=== PATIENT | female | born 1990 | race Caucasian/White ===

== ENCOUNTER 2017-08-25 16:39 | Emergency (ER) | payer MEDICARE, MEDICAID ==
[2017-08-25 17:21] VITALS: BP 114/78
--- NOTE | 2017-08-25 17:43 | UC ---
Throat Pain/Nasal Shahid HPI - HPI Summary HPI Summary: sinus pain and pressure x 2 weeks + nasal congestion , pnd, cough, bilateral ear pain no fever, no chills - History of Current Complaint Chief Complaint: UCGeneralIllness Stated Complaint: COLD SYMPTOMS,EAR ACHE Time Seen by Provider: 08/25/17 17:38 Hx Obtained From: Patient Hx Last Menstrual Period: 09/30/15 Onset/Duration: Gradual Onset, Lasting Weeks - 2, Still Present Severity: Moderate Cough: Nonproductive Associated Signs & Symptoms: Positive: Sinus Discomfort, Nasal Discharge. Negative: Dysphagia, FB Sensation, Drooling, Wheezing, Hoarseness, Fever, Vomiting, Rash - Allergies/Home Medications Allergies/Adverse Reactions: Allergies Allergy/AdvReac Type Severity Reaction Status Date / Time No Known Allergies Allergy Verified 08/25/17 17:21 Home Medications: Home Medications Amitriptyline TAB* [Elavil TAB*] 20 mg PO BEDTIME 08/25/17 [History Confirmed ] Botox Injections SEE INSTRUCTIONS 08/25/17 [History] Cyclobenzaprine HCl [Flexeril 5 mg (NF)] 5 mg PO TID PRN 08/25/17 [History Confirmed 08/25/17] Magnesium Oxide TAB* [MagOx 400 TAB*] 400 mg PO DAILY 08/25/17 [History Confirmed 08/25/17] Naproxen [Naproxen 500 mg] 500 mg PO BID PRN 08/25/17 [History Confirmed ] SUMAtriptan TAB* [Imitrex TAB*] 50 mg PO SEE INSTRUCTIONS PRN 08/25/17 [History Confirmed 08/25/17] Sertraline* [Zoloft*] 50 mg PO DAILY 08/25/17 [History Confirmed 08/25/17] Topiramate [Topamax 100 mg tab] 100 mg BID 08/25/17 [History Confirmed 08/25/17] PMH/Surg Hx/FS Hx/Imm Hx Previously Healthy: Yes - Surgical History Surgical History: Yes Surgery Procedure, Year, and Place: 2010 & 2011 Sinus surgeries, [facility] (Dr. Torres). TUBES TIED--08/25/15. hysterectomy 11/2016 - Family History Known Family History: Negative: Diabetes - Social History Alcohol Use: Rare Substance Use Type: None Smoking Status (MU): Light Every Day Tobacco Smoker Type: Cigarettes Amount Used/How Often: LESS THAN 1/2 PPD Length of Time of Smoking/Using Tobacco: 8 YRS Have You Smoked in the Last Year: Yes When Did the Patient Quit Smoking/Using Tobacco: 08/2014 Household Exposure Type: Cigarettes - Immunization History Most Recent Influenza Vaccination: none Most Recent Tetanus Shot: 03/16/15 Most Recent Pneumonia Vaccination: none Review of Systems Constitutional: Negative Skin: Negative Eyes: Negative ENT: Ear Ache, Nasal Discharge, Sinus Congestion, Sinus Pain/Tenderness Respiratory: Cough Cardiovascular: Negative Gastrointestinal: Negative Is Patient Immunocompromised?: No All Other Systems Reviewed And Are Negative: Yes Physical Exam Triage Information Reviewed: Yes Appearance: Well-Appearing, No Pain Distress, Well-Nourished Vital Signs: Initial Vital Signs Temp 99 F 08/25/17 17:16 Pulse 108 08/25/17 17:16 Resp 17 08/25/17 17:16 BP 114/78 08/25/17 17:16 Pulse Ox 100 08/25/17 17:16 Vital Signs Reviewed: Yes Eye Exam: Normal Eyes: Positive: Conjunctiva Clear ENT: Positive: Normal ENT inspection, Hearing grossly normal, Pharynx normal, Nasal congestion, Nasal drainage, TMs normal Neck: Positive: Supple, Nontender, No Lymphadenopathy Respiratory: Positive: Chest non-tender, Lungs clear, Normal breath sounds Cardiovascular: Positive: RRR, No Murmur, Pulses Normal Throat Pain/Nasal Course/Dx - Differential Dx/Diagnosis Provider Diagnoses: sinusitis Discharge - Discharge Plan Condition: Stable Disposition: HOME Prescriptions: Amoxicillin/Clavulanate TAB* [Augmentin TAB 875*] 875 mg PO BID #20 tab Patient Education Materials: Sinusitis (ED) Referrals: DEVAUGHN Rivers [Primary Care Provider] - If Needed
== END 2017-08-25 17:47 | disposition home or self-care (01) ==
LOC: UCCORT 16:39
DX: J32.9 Chronic sinusitis, unspecified (principal); F17.210 Nicotine dependence, cigarettes, uncomplicated
CPT/HCPCS: 99212; G0463

== ENCOUNTER 2017-10-26 10:30 | Emergency (ER) | payer MEDICARE, MEDICAID ==
[2017-10-26 13:37] VITALS: BP 123/76
--- NOTE | 2017-10-26 15:14 | UC ---
Throat Pain/Nasal Shahid HPI - HPI Summary HPI Summary: SINUS INFECTION 6 WEEKS AGO, 3 WEEKS OF RIGHT EAR PAIN - History of Current Complaint Chief Complaint: UCRespiratory Stated Complaint: SINUSES,RT EAR Time Seen by Provider: 10/26/17 13:05 Hx Obtained From: Patient, Family/Motel Manager Hx Last Menstrual Period: n/a Onset/Duration: Gradual Onset, Lasting Weeks, Still Present Severity: Moderate Pain Intensity: 9 Pain Scale Used: 0-10 Numeric Cough: Nonproductive Associated Signs & Symptoms: Positive: Hoarseness, Sinus Discomfort, Nasal Discharge - Epiglottits Risk Factors Epiglottis Risk Factors: Negative - Allergies/Home Medications Allergies/Adverse Reactions: Allergies Allergy/AdvReac Type Severity Reaction Status Date / Time seasonal Allergy Eyes Uncoded 10/26/17 13:37 Itchy/Swollen/Red/Watery PMH/Surg Hx/FS Hx/Imm Hx Previously Healthy: Yes - Surgical History Surgical History: Yes Surgery Procedure, Year, and Place: 2010 & 2011 Sinus surgeries, [facility] (Dr. Torres). TUBES TIED--08/25/15. hysterectomy 11/2016 - Family History Known Family History: Negative: Diabetes - Social History Occupation: Employed Full-time Lives: With Family Alcohol Use: Rare Substance Use Type: None Smoking Status (MU): Light Every Day Tobacco Smoker Type: Cigarettes Amount Used/How Often: LESS THAN 1/2 PPD Length of Time of Smoking/Using Tobacco: 8 YRS Have You Smoked in the Last Year: Yes When Did the Patient Quit Smoking/Using Tobacco: 08/2014 Household Exposure Type: Cigarettes - Immunization History Most Recent Influenza Vaccination: none Most Recent Tetanus Shot: 03/16/15 Most Recent Pneumonia Vaccination: none Review of Systems Constitutional: Negative Skin: Negative Eyes: Negative ENT: Ear Ache, Nasal Discharge, Sinus Congestion, Sinus Pain/Tenderness Respiratory: Cough Cardiovascular: Negative Gastrointestinal: Negative Genitourinary: Negative Motor: Negative Neurovascular: Negative Musculoskeletal: Negative Neurological: Negative Psychological: Negative Is Patient Immunocompromised?: No All Other Systems Reviewed And Are Negative: Yes Physical Exam Triage Information Reviewed: Yes Appearance: No Pain Distress, Well-Nourished, Ill-Appearing Vital Signs: Initial Vital Signs Temp 97.9 F 10/26/17 13:26 Pulse 104 10/26/17 13:26 Resp 22 10/26/17 13:26 BP 123/76 10/26/17 13:26 Pulse Ox 98 10/26/17 13:26 Vital Signs Reviewed: Yes Eye Exam: Normal ENT: Positive: TM bulging, TM dull, TM red - RIGHT, Other - RIGHT EAC EDEMA ERYTHEMA Dental Exam: Normal Neck exam: Normal Neck: Positive: Supple, Nontender, No Lymphadenopathy Respiratory Exam: Normal Respiratory: Positive: Chest non-tender, Lungs clear, Normal breath sounds, No respiratory distress, No accessory muscle use Cardiovascular Exam: Normal Cardiovascular: Positive: RRR, No Murmur, Pulses Normal, Brisk Capillary Refill Abdominal Exam: Normal Abdomen Description: Positive: Nontender, No Organomegaly Musculoskeletal Exam: Normal Neurological Exam: Normal Psychological Exam: Normal Skin Exam: Normal Throat Pain/Nasal Course/Dx - Differential Dx/Diagnosis Differential Diagnosis/HQI/PQRI: Pharyngitis, Sinusitis, Tonsillitis, URI Provider Diagnoses: SINUSITIS; RIGHT OTITIS EXTERNA Discharge - Discharge Plan Condition: Stable Disposition: HOME Prescriptions: Amoxicillin/Clavulanate TAB* [Augmentin TAB 875*] 875 mg PO BID #20 tab Neomyc/Polym/HC 1% OTIC SUSP* [Cortisporin Otic Susp 1%*] 4 drop RIGHT EAR QID # 1 btl Patient Education Materials: Sinusitis (ED), Otitis Externa (ED) Referrals: DEVAUGHN Rivers [Primary Care Provider] -
== END 2017-10-26 13:46 | disposition home or self-care (01) ==
LOC: UCCORT 10:30
DX: J32.9 Chronic sinusitis, unspecified (principal); H60.91 Unspecified otitis externa, right ear; Z87.891 Personal history of nicotine dependence
CPT/HCPCS: 99212; G0463

== ENCOUNTER 2017-12-10 16:44 | Emergency (ER) | payer MEDICARE, MEDICAID ==
[2017-12-10 19:38] VITALS: BP 107/73
--- NOTE | 2017-12-10 19:52 | UC ---
Respiratory Complaint HPI - HPI Summary HPI Summary: 27 y/o female presents to the urgent care c/o nasal congestion, productive cough , fever, chills, body ache. symptoms started with sore throat on 12/06/2017, but it resolved and then body aches started on 12/08/2017. Nasal discharged is green with +PND. Pain is dull 5/10. She has taking Dayquill and Nyquill to alleviate symptoms. Pt deneis SOB, chest pain, abdominal pain, N/V/D. - History of Current Complaint Chief Complaint: UCGeneralIllness Stated Complaint: COUGH/CONGESTION Time Seen by Provider: 12/10/17 19:51 Hx Obtained From: Patient Hx Last Menstrual Period: n/a ?: No Onset/Duration: Gradual Onset, Lasting Days - 4 days, Still Present, Worse Since - 2 days Timing: Intermittent Episodes Severity Initially: Mild Severity Currently: Moderate Pain Intensity: 5 Pain Scale Used: 0-10 Numeric Character: Cough: Productive, Sputum Description: - green Aggravating Factors: Recumbent Position Alleviating Factors: OTC Meds Associated Signs And Symptoms: Positive: Fever, Chills, URI, Nasal Congestion, Sinus Discomfort - Risk Factors Pulmonary Embolism Risk Factors: Negative Cardiac Risk Factors: Negative Pseudomonas Risk Factors: Negative - Allergies/Home Medications Allergies/Adverse Reactions: Allergies Allergy/AdvReac Type Severity Reaction Status Date / Time seasonal Allergy Eyes Uncoded 12/10/17 19:38 Itchy/Swollen/Red/Watery PMH/Surg Hx/FS Hx/Imm Hx Previously Healthy: Yes GI/ History: Gastroesophageal Reflux Neurological History: Migraine - Surgical History Surgical History: Yes Surgery Procedure, Year, and Place: 2010 & 2011 Sinus surgeries, [facility] (Dr. Torres). TUBES TIED--08/25/15. hysterectomy 11/2016 - Family History Known Family History: Positive: Cardiac Disease, Hypertension, Diabetes - Social History Occupation: Employed Full-time Lives: With Family Alcohol Use: None Substance Use Type: None Smoking Status (MU): Light Every Day Tobacco Smoker Type: Cigarettes Amount Used/How Often: LESS THAN 1/2 PPD Length of Time of Smoking/Using Tobacco: 8 YRS Have You Smoked in the Last Year: Yes When Did the Patient Quit Smoking/Using Tobacco: 08/2014 Household Exposure Type: Cigarettes - Immunization History Most Recent Influenza Vaccination: 7818-8441 Most Recent Tetanus Shot: 03/16/15 Most Recent Pneumonia Vaccination: none Review of Systems Constitutional: Fever, Chills, Other - body aches Skin: Negative Eyes: Negative ENT: Sore Throat, Ear Ache - B/L ear pressure, Nasal Discharge, Sinus Congestion Respiratory: Cough - productive Cardiovascular: Negative Gastrointestinal: Negative Genitourinary: Negative Motor: Negative Neurovascular: Negative Musculoskeletal: Negative Neurological: Negative Psychological: Negative Is Patient Immunocompromised?: No All Other Systems Reviewed And Are Negative: Yes Physical Exam Triage Information Reviewed: Yes Vital Signs: Initial Vital Signs Temp 100.5 F 12/10/17 19:34 Pulse 116 12/10/17 19:34 Resp 17 12/10/17 19:34 BP 107/73 12/10/17 19:34 Pulse Ox 100 12/10/17 19:34 - Additional Comments VITAL SIGNS: Reviewed. GENERAL: Patient is a well developed and nourished female who is sitting comfortable in the examining table. Patient is not in any acute respiratory distress. HEAD AND FACE: No signs of trauma. No ecchymosis, hematomas or skull depressions. No sinus tenderness. NOSE: edematous erythematous nasal mucosa with yellowish discharge, EYES: PERRLA, EOMI x 2, No injected conjunctiva, clear watery eyes, no nystagmus. No photophobia. EARS: Hearing grossly intact. Ear canals and tympanic membranes are within normal limits. MOUTH: Positive pharynx with erythema, no exudates,no palatal petechiae. no B/ L tonsillar enlargement Uvula in midline. NECK: Supple, trachea is midline, Positive anterior cervical lymphadenopathy, no JVD, no carotid bruit, no c-spine tenderness, neck with full ROM. No meningeal signs, no Kernig's or brudzinskis signs. CHEST: Symmetric, no tenderness at palpation LUNGS: Clear to auscultation bilaterally. No wheezing or crackles. CVS: Regular rate and rhythm, S1 and S2 present, no murmurs or gallops appreciated. ABDOMEN: Soft, non-tender. No signs of distention. No rebound no guarding, and no masses palpated. Bowel sounds are normal. EXTREMITIES: FROM in all major joints, no edema, no cyanosis or clubbing. NEURO: Alert and oriented x 3. No acute neurological deficits. Speech is normal and follows commands. SKIN: Dry and warm UC Diagnostic Evaluation - Laboratory O2 Sat by Pulse Oximetry: 100 Respiratory Course/Dx - Course Course Of Treatment: 27 y/o female presents to the urgent care c/o nasal congestion, productive cough, fever, chills, body ache. symptoms started with sore throat on 12/06/2017, but it resolved and then body aches started on 2017. Nasal discharged is green with +PND. Pain is dull 5/10. She has taking Dayquill and Nyquill to alleviate symptoms. Pt deneis SOB, chest pain, abdominal pain, N/V/D.Hx obtained. Pt w/ 100.5F, Pt given Ibuprofen PO at the clinic. Pt tolerated well medication. with 1 week of symptoms getting worse, now with fever. Influenxa A&B ordered: result: negative. Pt will be Tx for acute sinusitis. Pt Rx Augmentin PO and Ibuprofen to control temp. Discharge instructions explained to Pt. Advised to Return to the clinic or PCP if symptoms do not improve.Pt understood and agreed with plan of care. - Differential Dx/Diagnosis Differential Diagnosis/HQI/PQRI: Asthma, Bronchitis, Influenza, Laryngitis, Lower Resp Infection, Sinusitis, Other - pharyngitis, Provider Diagnoses: 1- acute bacterial sinusitis. 2- fever Discharge - Discharge Plan Condition: Stable Disposition: HOME Prescriptions: Amoxicillin/Clavulanate TAB* [Augmentin TAB 875*] 875 mg PO BID #20 tab Ibuprofen TAB* [Motrin TAB* 800 MG] 800 mg PO Q6H #20 tab Patient Education Materials: Sinusitis (ED), Fever in Adults (ED) Referrals: DEVAUGHN Rivers [Primary Care Provider] - 2 Days Additional Instructions: 1- Please increase fluid intake and rest. take full course of antibiotic to avoid resistance 2-Use Flonase ypou have at home as directed to help drain fluid. Also buy saline drops to clear sinuses 3-Take Ibuprofen PO q6-8hrs to alleviate fever after meals. Increase fluid intake, rest, eat well. 4- If you develop SOB, severe fever despite medication please go immediately to the ER for further treatment 4-Return to the clinic or PCP if symptoms do not improve for further management and treatment
[2017-12-10] MEDS ORDERED: Ibuprofen TAB* 400 MG PO ONE (20:05)
== END 2017-12-10 20:41 | disposition home or self-care (01) ==
LOC: UCCORT 16:44
DX: J01.90 Acute sinusitis, unspecified (principal); R50.9 Fever, unspecified; K21.9 Gastro-esophageal reflux disease without esophagitis; G43.909 Migraine, unspecified, not intractable, without status migrainosus; Z90.710 Acquired absence of both cervix and uterus; Z87.891 Personal history of nicotine dependence
CPT/HCPCS: 87502; 99212; A9270-GY; G0463

== ENCOUNTER 2018-03-23 10:11 | Emergency (ER) | payer MEDICARE, MEDICAID ==
[2018-03-23 12:02] VITALS: BP 103/76
--- NOTE | 2018-03-23 12:19 | UC ---
Respiratory Complaint HPI - HPI Summary HPI Summary: Patient to urgent care today with worsening symptoms of sinus pain and pressure cough nasal drainage and sore throat. Patient has had fevers. Patient has a history of chronic sinusitis - History of Current Complaint Chief Complaint: UCGeneralIllness Stated Complaint: CONGESTION, COUGH, SORE THROAT Time Seen by Provider: 03/23/18 12:11 Hx Obtained From: Patient Hx Last Menstrual Period: n/a ?: No Onset/Duration: Sudden Onset, Lasting Days Timing: Constant Severity Initially: Moderate Severity Currently: Moderate Pain Intensity: 7 Pain Scale Used: 0-10 Numeric Character: Cough: Nonproductive Aggravating Factors: Nothing Alleviating Factors: Nothing Associated Signs And Symptoms: Positive: Fever, Chills, Nasal Congestion, Hoarseness, Sinus Discomfort - Allergies/Home Medications Allergies/Adverse Reactions: Allergies Allergy/AdvReac Type Severity Reaction Status Date / Time seasonal Allergy Eyes Uncoded 12/10/17 19:38 Itchy/Swollen/Red/Watery Home Medications: Home Medications Dm/PE/Acetaminophen/Chlorphenr [Zoe-[place] Plus Cld-Cough Cp] 1 each PO Q6H [History Confirmed 03/23/18] Rizatriptan Benzoate [Rizatriptan] 5 mg PO Q12H 03/23/18 [History Confirmed ] PMH/Surg Hx/FS Hx/Imm Hx Previously Healthy: No - chronic sinusitis Neurological History: Migraine - Surgical History Surgical History: Yes Surgery Procedure, Year, and Place: 2010 & 2011 Sinus surgeries, [facility] (Dr. Torres). TUBES TIED--08/25/15. hysterectomy 11/2016 - Family History Known Family History: Positive: Cardiac Disease, Hypertension, Diabetes - Social History Occupation: Works From/At Home Lives: With Family Alcohol Use: None Substance Use Type: None Smoking Status (MU): Former Smoker Type: Cigarettes Amount Used/How Often: LESS THAN 1/2 PPD Length of Time of Smoking/Using Tobacco: 8 YRS Have You Smoked in the Last Year: Yes When Did the Patient Quit Smoking/Using Tobacco: 2018 Household Exposure Type: Cigarettes - Immunization History Most Recent Influenza Vaccination: [id number] Most Recent Tetanus Shot: 03/16/15 Most Recent Pneumonia Vaccination: none Review of Systems Constitutional: Negative Skin: Negative Eyes: Negative ENT: Sore Throat, Ear Ache, Nasal Discharge, Sinus Congestion, Sinus Pain/ Tenderness Respiratory: Cough Cardiovascular: Negative Gastrointestinal: Negative Genitourinary: Negative Motor: Negative Neurovascular: Negative Musculoskeletal: Negative Neurological: Headache Psychological: Negative Is Patient Immunocompromised?: No All Other Systems Reviewed And Are Negative: Yes Physical Exam Triage Information Reviewed: Yes Appearance: Well-Nourished, Ill-Appearing, Pain Distress Vital Signs: Initial Vital Signs Temp 98.1 F 03/23/18 11:52 Pulse 107 03/23/18 11:52 Resp 20 03/23/18 11:52 BP 103/76 03/23/18 11:52 Pulse Ox 98 03/23/18 11:52 Vital Signs Reviewed: Yes Eye Exam: Normal Eyes: Positive: Conjunctiva Clear ENT Exam: Normal ENT: Positive: Normal ENT inspection, Hearing grossly normal, Pharyngeal erythema, Nasal congestion, Nasal drainage, TMs normal, Hoarse voice, Sinus tenderness, Uvula midline. Negative: Tonsillar swelling, Tonsillar exudate, Trismus, Muffled voice Dental Exam: Normal Neck exam: Normal Neck: Positive: Supple, Nontender, No Lymphadenopathy Respiratory Exam: Normal Respiratory: Positive: Chest non-tender, Lungs clear, Normal breath sounds, No respiratory distress, No accessory muscle use Cardiovascular Exam: Normal Cardiovascular: Positive: RRR, No Murmur, Pulses Normal, Brisk Capillary Refill Musculoskeletal Exam: Normal Musculoskeletal: Positive: Strength Intact, ROM Intact, No Edema Neurological Exam: Normal Neurological: Positive: Alert, Muscle Tone Normal Psychological Exam: Normal Psychological: Positive: Normal Response To Family Skin Exam: Normal UC Diagnostic Evaluation - Laboratory O2 Sat by Pulse Oximetry: 98 Diagnostic Studies Comment: Influenza A/B- Respiratory Course/Dx - Course Course Of Treatment: Continue steroid nasal spray, Mucinex D, Augmentin increase fluids follow with PCP. May use Tylenol or ibuprofen for pain - Differential Dx/Diagnosis Provider Diagnoses: Acute exacerbation of chronic sinusitis Discharge - Sign-Out/Discharge Documenting (check all that apply): Discharge/Admit/Transfer - Discharge Plan Condition: Stable Disposition: HOME Prescriptions: Amoxicillin/Clavulanate TAB* [Augmentin TAB 875*] 875 mg PO BID #20 tab Patient Education Materials: Sinusitis (ED), Nasal Rinse (ED), How to Use Nasal [place] (ED) Referrals: DEVAUGHN Rivers [Primary Care Provider] - If Needed - Billing Disposition and Condition Condition: STABLE Disposition: HOME
== END 2018-03-23 13:04 | disposition home or self-care (01) ==
LOC: UCCORT 10:11
DX: J01.90 Acute sinusitis, unspecified (principal); J32.9 Chronic sinusitis, unspecified; Z87.891 Personal history of nicotine dependence
CPT/HCPCS: 87502; 99212; G0463

== ENCOUNTER 2018-06-18 12:38 | Emergency (ER) | payer MEDICARE, MEDICAID ==
[2018-06-18 13:24] VITALS: BP 107/67
[2018-06-18] MEDS ORDERED: Ondansetron ODT TAB* 4 MG PO ONE (13:29)
[2018-06-18] MEDS ORDERED: Ketorolac INJ* 60 MG/2 ML VIAL IM ONE (13:29)
--- NOTE | 2018-06-18 13:34 | UC ---
Throat Pain/Nasal Shahid HPI - HPI Summary HPI Summary: SORE THROAT X 2 DAYS + NASAL CONGESTION , PND, SINUS PAIN AND PRESSURE + FEVER, CHILLS SEVER HEADACHES FOR THE PAST 2 DAYS - History of Current Complaint Chief Complaint: UCGeneralIllness Stated Complaint: SINUSES,DELACRUZ Time Seen by Provider: 06/18/18 13:22 Hx Obtained From: Patient Hx Last Menstrual Period: n/a ?: No Onset/Duration: Gradual Onset, Lasting Days - 2, Still Present Severity: Severe Pain Intensity: 8 Cough: None Associated Signs & Symptoms: Positive: Sinus Discomfort, Nasal Discharge, Fever. Negative: Dysphagia, FB Sensation, Drooling, Wheezing, Hoarseness, Vomiting, Rash - Allergies/Home Medications Allergies/Adverse Reactions: Allergies Allergy/AdvReac Type Severity Reaction Status Date / Time seasonal Allergy Eyes Uncoded 06/18/18 13:24 Itchy/Swollen/Red/Watery PMH/Surg Hx/FS Hx/Imm Hx Neurological History: Migraine - Surgical History Surgical History: Yes Surgery Procedure, Year, and Place: 2010 & 2011 Sinus surgeries, [facility] (Dr. Torres). TUBES TIED--08/25/15. hysterectomy 11/2016 - Family History Known Family History: Positive: Cardiac Disease, Hypertension, Diabetes - Social History Alcohol Use: None Substance Use Type: None Smoking Status (MU): Never Smoked Tobacco Type: Cigarettes Amount Used/How Often: LESS THAN 1/2 PPD Length of Time of Smoking/Using Tobacco: 8 YRS Have You Smoked in the Last Year: Yes When Did the Patient Quit Smoking/Using Tobacco: 2018 Household Exposure Type: Cigarettes - Immunization History Most Recent Influenza Vaccination: 4087-1043 Most Recent Tetanus Shot: 03/16/15 Most Recent Pneumonia Vaccination: none Review of Systems Constitutional: Fever, Chills, Fatigue Skin: Negative Eyes: Negative ENT: Sore Throat, Ear Ache, Nasal Discharge, Sinus Congestion, Sinus Pain/ Tenderness Respiratory: Negative Cardiovascular: Negative Neurological: Headache Is Patient Immunocompromised?: No All Other Systems Reviewed And Are Negative: Yes Physical Exam Triage Information Reviewed: Yes Appearance: Well-Nourished, Pain Distress Vital Signs: Initial Vital Signs Temp 97.6 F 06/18/18 13:18 Pulse 100 06/18/18 13:18 Resp 18 06/18/18 13:18 BP 107/67 06/18/18 13:18 Pulse Ox 99 06/18/18 13:18 Vital Signs Reviewed: Yes Eyes: Positive: Conjunctiva Clear ENT: Positive: Normal ENT inspection, Hearing grossly normal, Pharynx normal Neck: Positive: Supple, Nontender, No Lymphadenopathy Respiratory: Positive: Chest non-tender, Lungs clear, Normal breath sounds Cardiovascular: Positive: No Murmur, Tachycardia Abdominal Exam: Normal Musculoskeletal Exam: Normal Musculoskeletal: Positive: No Edema Neurological: Positive: Alert UC Physical Exam Vital Signs On Initial Exam: Initial Vitals Temp Pulse Resp BP Pulse Ox 97.6 F 100 18 107/67 99 06/18/18 13:18 06/18/18 13:18 06/18/18 13:18 06/18/18 13:18 06/18/18 13:18 - Neurological Exam Neurological: Normal, Sensory/Motor Intact, Alert, Oriented to Person Place, Time, Reflexes Intact, Normal Gait, Speech Normal Throat Pain/Nasal Course/Dx - Differential Dx/Diagnosis Provider Diagnoses: URI. HEADACHES Discharge - Sign-Out/Discharge Documenting (check all that apply): Patient Departure - Discharge Plan Condition: Stable Disposition: HOME Patient Education Materials: Upper Respiratory Infection (ED), Acute Headache ( DC) Referrals: Kaye Pool MD [Primary Care Provider] - - Billing Disposition and Condition Condition: STABLE Disposition: Home
== END 2018-06-18 14:14 | disposition home or self-care (01) ==
LOC: UCCORT 12:38
DX: J06.9 Acute upper respiratory infection, unspecified (principal); R51 Headache; Z87.891 Personal history of nicotine dependence
CPT/HCPCS: 96372; 99212; A9270-GY; G0463; J1885

== ENCOUNTER 2018-08-19 16:23 | Emergency (ER) | payer MEDICARE, MEDICAID ==
[2018-08-19 20:06] VITALS: BP 111/65
--- NOTE | 2018-08-19 20:07 | UC ---
UC General HPI - HPI Summary HPI Summary: Patient is complaining of a 5 day history of pain and itching to both ears. She denies any associated discharge but reports that she had swimmer's ear once and it got very severe. She is also complaining of headache, sore throat, body aches and of her neck being sore. - History of Current Complaint Stated Complaint: ST,PAIN IN BOTH EARS,SINUS/DELACRUZ Time Seen by Provider: 08/19/18 19:59 Hx Obtained From: Patient Hx Last Menstrual Period: n/a Onset/Duration: Gradual Onset Timing: Constant Aggravating: Nothing Alleviating: Patient took an anti-inflammatory 4 hours ago which gives some relief - Allergy/Home Medications Allergies/Adverse Reactions: Allergies Allergy/AdvReac Type Severity Reaction Status Date / Time seasonal Allergy Eyes Uncoded 08/19/18 19:56 Itchy/Swollen/Red/Watery Home Medications: Home Medications Fluoxetine HCl [Prozac] 20 mg PO DAILY 08/19/18 [History Confirmed 08/19/18] Ibuprofen TAB* [Advil TAB*] 800 mg PO Q6H PRN 08/19/18 [History Confirmed ] PMH/Surg Hx/FS Hx/Imm Hx Neurological History: Migraine Psychological History: Depression - Surgical History Surgical History: Yes Surgery Procedure, Year, and Place: 2010 & 2011 Sinus surgeries, [facility] (Dr. Torres). TUBES TIED--08/25/15. 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 Lives: With Family Alcohol Use: None Substance Use Type: None Smoking Status (MU): Never Smoked Tobacco Type: Cigarettes Amount Used/How Often: LESS THAN 1/2 PPD Length of Time of Smoking/Using Tobacco: 8 YRS Have You Smoked in the Last Year: Yes When Did the Patient Quit Smoking/Using Tobacco: 2018 Household Exposure Type: Cigarettes - Immunization History Most Recent Influenza Vaccination: 9869-1158 Most Recent Tetanus Shot: 03/16/15 Most Recent Pneumonia Vaccination: none Vaccination Up to Date: Yes Review of Systems ENT: Sore Throat, Ear Ache Musculoskeletal: Myalgia Neurological: Headache Is Patient Immunocompromised?: No All Other Systems Reviewed And Are Negative: Yes Physical Exam Triage Information Reviewed: Yes Appearance: Well-Appearing Eyes: Positive: Conjunctiva Clear ENT: Positive: Pharyngeal erythema, TMs normal, Uvula midline, Other - Left canal has some slight erythema but no exudate. Right canal appears clear. Patient complain and complains of pain pressure on each tragus and with tug of each auricle. Negative: Nasal congestion, Nasal drainage, Tonsillar swelling, Tonsillar exudate, Trismus, Muffled voice, Hoarse voice Neck: Positive: Supple, Nontender, No Lymphadenopathy. Negative: Nuchal Rigidity Respiratory: Positive: Lungs clear, Normal breath sounds Cardiovascular: Positive: RRR, No Murmur Abdomen Description: Positive: Nontender, No Organomegaly, Soft Bowel Sounds: Positive: Present Musculoskeletal: Positive: ROM Intact Neurological: Positive: Alert Psychological: Positive: Age Appropriate Behavior Skin Exam: Normal Diagnostics - Laboratory Diagnostic Studies Completed/Ordered: rapid strep=NEG Course/Dx - Course Course Of Treatment: RAPID STREP=NEG. OE WILL BE TX WITH DROPS. - Differential Dx - Multi-Symptom Provider Diagnoses: Otitis externa. Pharyngitis. Discharge - Sign-Out/Discharge Documenting (check all that apply): Patient Departure All imaging exams completed and their final reports reviewed: No Studies - Discharge Plan Condition: Stable Disposition: HOME Patient Education Materials: Otitis Externa (DC), Pharyngitis (ED) Referrals: Ira Parmar MD [Primary Care Provider] - 7 Days Additional Instructions: Place 4 drops of the Cortisporin otic suspension eardrops in each ear 3 times a day for 7 days. - Billing Disposition and Condition Condition: STABLE Disposition: Home
[2018-08-19] MEDS ORDERED: Neomyc/Polym/HC 1% OTIC SUSP* **OTIC BOTH EARS ONE (20:17)
== END 2018-08-19 20:49 | disposition home or self-care (01) ==
LOC: UCCORT 16:23
DX: H60.90 Unspecified otitis externa, unspecified ear (principal); J02.9 Acute pharyngitis, unspecified; H92.03 Otalgia, bilateral; F32.9 Major depressive disorder, single episode, unspecified; Z87.891 Personal history of nicotine dependence
CPT/HCPCS: 87651; 99212; A9270-GY; G0463

== ENCOUNTER 2018-09-28 09:37 | Emergency (ER) | payer MEDICARE, MEDICAID ==
[2018-09-28 11:48] VITALS: BP 112/67
--- NOTE | 2018-09-28 11:59 | UC ---
Throat Pain/Nasal Shahid HPI - HPI Summary HPI Summary: Pt presents with c/o nasal congestion, sinus pressure and pain X 2 weeks. - History of Current Complaint Chief Complaint: UCGeneralIllness Stated Complaint: CONGESTION, SORE THROAT, LEFT EAR CONCERN Time Seen by Provider: 09/28/18 11:47 Hx Obtained From: Patient Hx Last Menstrual Period: hysterectomy ?: No Onset/Duration: Gradual Onset, Lasting Weeks, Still Present Severity: Moderate Pain Intensity: 7 Cough: None Associated Signs & Symptoms: Positive: Sinus Discomfort Related History: Prior ENT Surgery - Epiglottits Risk Factors Epiglottis Risk Factors: Negative - Allergies/Home Medications Allergies/Adverse Reactions: Allergies Allergy/AdvReac Type Severity Reaction Status Date / Time seasonal Allergy Eyes Uncoded 08/19/18 19:56 Itchy/Swollen/Red/Watery PMH/Surg Hx/FS Hx/Imm Hx Previously Healthy: Yes - Surgical History Surgical History: Yes Surgery Procedure, Year, and Place: 2010 & 2011 Sinus surgeries, [facility] (Dr. Torres). TUBES TIED--08/25/15. hysterectomy 11/2016 - Family History Known Family History: Positive: Cardiac Disease, Hypertension, Diabetes - Social History Occupation: Employed Full-time Lives: With Family Alcohol Use: None Substance Use Type: None Smoking Status (MU): Never Smoked Tobacco Type: Cigarettes Amount Used/How Often: LESS THAN 1/2 PPD Length of Time of Smoking/Using Tobacco: 8 YRS Have You Smoked in the Last Year: Yes When Did the Patient Quit Smoking/Using Tobacco: 2018 Household Exposure Type: Cigarettes - Immunization History Most Recent Influenza Vaccination: [id number] Most Recent Tetanus Shot: 03/16/15 Most Recent Pneumonia Vaccination: none Vaccination Up to Date: Yes Review of Systems Constitutional: Fatigue Skin: Negative Eyes: Negative ENT: Sinus Congestion, Sinus Pain/Tenderness Respiratory: Negative Cardiovascular: Negative Gastrointestinal: Negative Genitourinary: Negative Neurovascular: Negative Musculoskeletal: Negative Neurological: Headache Psychological: Negative Is Patient Immunocompromised?: No All Other Systems Reviewed And Are Negative: Yes Physical Exam Triage Information Reviewed: Yes Appearance: Well-Appearing Vital Signs: Initial Vital Signs Temp 97.6 F 09/28/18 11:43 Pulse 94 09/28/18 11:43 Resp 18 09/28/18 11:43 BP 112/67 09/28/18 11:43 Pulse Ox 99 09/28/18 11:43 Vital Signs Reviewed: Yes Eye Exam: Normal ENT: Positive: Nasal congestion, Sinus tenderness Dental Exam: Normal Neck exam: Normal Respiratory Exam: Normal Cardiovascular Exam: Normal Musculoskeletal Exam: Normal Neurological Exam: Normal Psychological Exam: Normal Skin Exam: Normal Throat Pain/Nasal Course/Dx - Differential Dx/Diagnosis Differential Diagnosis/HQI/PQRI: Sinusitis, URI Provider Diagnoses: sinusitis Discharge - Sign-Out/Discharge Documenting (check all that apply): Patient Departure All imaging exams completed and their final reports reviewed: No Studies - Discharge Plan Condition: Stable Disposition: HOME Prescriptions: Amoxicillin PO (*) [Amoxicillin 875 MG (*)] 875 mg PO Q12H #20 tab Patient Education Materials: Sinusitis (ED) Referrals: Graham Torres MD [Medical Doctor] - If Needed Ira Parmar MD [Primary Care Provider] - If Needed - Billing Disposition and Condition Condition: STABLE Disposition: Home
== END 2018-09-28 12:06 | disposition home or self-care (01) ==
LOC: UCCORT 09:37
DX: J01.90 Acute sinusitis, unspecified (principal)
CPT/HCPCS: 99212; G0463

== ENCOUNTER 2018-11-28 18:08 | Emergency (ER) | payer MEDICARE, MEDICAID ==
[2018-11-28 19:20] VITALS: BP 103/75
[2018-11-28] MEDS ORDERED: Acetaminophen TAB* 325 MG PO ONE (19:57)
--- NOTE | 2018-11-28 20:02 | ED ---
Throat Pain/Nasal Congestion - HPI Summary HPI Summary: 28 yr old female with a history of sinusitis. Present here with frontal and maxillary sinus pressure, post nasal drip, coughing. She complains of myalgias and some neck pain as well. She has post nasal drip. No NV. No SOB. - History of Current Complaint Chief Complaint: UCRespiratory Time Seen by Provider: 11/28/18 19:27 - Allergies/Home Medications Allergies/Adverse Reactions: Allergies Allergy/AdvReac Type Severity Reaction Status Date / Time seasonal Allergy Eyes Uncoded 11/28/18 19:12 Itchy/Swollen/Red/Watery Home Medications: Home Medications Erenumab-Aooe [Aimovig Autoinjector] 1 tab MONTHLY 11/28/18 [History Confirmed 11/28/18] Magnesium Oxide TAB* [MagOx 400 TAB*] 1 tab DAILY 11/28/18 [History Confirmed ] Omeprazole CAP* [Prilosec CAP* 20 MG] 40 mg DAILY 11/28/18 [History Confirmed ] PMH/Surg Hx/FS Hx/Imm Hx Endocrine/Hematology History: Denies: Hx Diabetes Cardiovascular History: Denies: Hx Hypertension, Hx Pacemaker/ICD Respiratory History: Denies: Hx Asthma, Hx Chronic Obstructive Pulmonary Disease (COPD) GI History: Reports: Hx Gastroesophageal Reflux Disease - HAS MEDS AVAILABLE History: Reports: Hx Kidney Stones - Hx OF,x2, PASSED ON OWN, BOTH TIMES Sensory History: Reports: Hx Contacts or Glasses - GLASSES Denies: Hx Hearing Aid Opthamlomology History: Reports: Hx Contacts or Glasses - GLASSES Neurological History: Reports: Hx Headaches, Hx Migraine - USUALLY 2x WK Psychiatric History: Reports: Hx Anxiety - HAS PRN MEDS, USES OCCASSIONALLY, Hx Depression Denies: Hx Panic Disorder - Surgical History Surgery Procedure, Year, and Place: 2010 & 2011 Sinus surgeries, [facility] (Dr. Torres). TUBES TIED--08/25/15. hysterectomy 11/2016 Hx Anesthesia Reactions: No Infectious Disease History: No Infectious Disease History: Denies: Traveled Outside the [place] in Last 30 Days - Family History Known Family History: Positive: Cardiac Disease, Hypertension, Diabetes - Social History Alcohol Use: None Substance Use Type: Reports: None Smoking Status (MU): Former Smoker Type: Cigarettes Amount Used/How Often: LESS THAN 1/2 PPD Length of Time of Smoking/Using Tobacco: 8 YRS Have You Smoked in the Last Year: Yes Review of Systems Positive: Fever, Chills Positive: Sore Throat, Nasal Discharge Positive: Cough All Other Systems Reviewed And Are Negative: Yes Physical Exam Triage Information Reviewed: Yes Vital Signs On Initial Exam: Initial Vitals Temp Pulse Resp BP Pulse Ox 98.5 F 99 16 103/75 99 11/28/18 19:15 11/28/18 19:15 11/28/18 19:15 11/28/18 19:15 11/28/18 19:15 Vital Signs Reviewed: Yes Appearance: Positive: Well-Appearing, No Pain Distress Skin: Positive: Warm, Skin Color Reflects Adequate Perfusion Head/Face: Positive: Normal Head/Face Inspection Eyes: Positive: EOMI, KRISTIE ENT: Positive: Pharyngeal erythema, Nasal congestion, Nasal drainage, TM red - bilateral with some retraction, Sinus tenderness Neck: Positive: Supple Respiratory/Lung Sounds: Positive: Clear to Auscultation, Breath Sounds Present Cardiovascular: Positive: RRR. Negative: Murmur Abdomen Description: Negative: Distended Musculoskeletal: Positive: Strength/ROM Intact Neurological: Positive: Sensory/Motor Intact, Alert, Oriented to Person Place, Time, CN Intact II-III, Normal Gait, Speech Normal Psychiatric: Positive: Normal Diagnostics - Vital Signs Vital Signs Temp Pulse Resp BP Pulse Ox 11/28/18 19:15 98.5 F 99 16 103/75 99 - Laboratory Lab Results: Lab Results 11/28/18 Range/Units 19:35 Influenza A (Rapid) Negative (Negative) Influenza B (Rapid) Negative (Negative) Lab Statement: Any lab studies that have been ordered have been reviewed, and results considered in the medical decision making process. EENT Course/Dx - Course Course Of Treatment: 28 yr old with sinusitis. Rx cefdinir. - Diagnoses Provider Diagnoses: Sinusitis Discharge - Sign-Out/Discharge Documenting (check all that apply): Patient Departure All imaging exams completed and their final reports reviewed: No Studies - Discharge Plan Condition: Good Disposition: HOME Prescriptions: Cefdinir [Cefdinir 300 MG CAP] 300 mg PO BID #20 cap Patient Education Materials: Sinusitis (ED) Forms: *Work Release Referrals: Ira Parmar MD [Primary Care Provider] - 2 Days - Billing Disposition and Condition Condition: GOOD Disposition: Home
== END 2018-11-28 20:07 | disposition home or self-care (01) ==
LOC: UCCORT 18:08
DX: Z87.891 Personal history of nicotine dependence (principal); J32.9 Chronic sinusitis, unspecified
CPT/HCPCS: 99212; A9270-GY; G0463

== ENCOUNTER 2019-03-21 17:52 | Emergency (ER) | payer MEDICARE, MEDICAID ==
[2019-03-21 18:30] VITALS: BP 114/71
--- NOTE | 2019-03-21 18:42 | UC ---
Abdominal Pain Female HPI - HPI Summary HPI Summary: Patient is 29 year old female, who present today to the urgent care with right lower abdominal pain for past 4 days . She reports that pain is localized in the right lower quadrant and also in the right upper quadrant ,radiates into the flank and into the groin. There is associated nausea for past 2 days but no episode of vomiting. She has been able to tolerate food by mouth. She had 2 loose bowel movements today morning. Does have some increased frequency but no hematuria or dysuria. No vaginal symptoms. She denies any trauma or injury to back. She denies any fevers at home. She was seen at [facility] 2 weeks ago, had more right low back pain at that time, had a CT scan done and she was told that she has a kidney stone and a possible ovarian cyst and she was discharged. She has an appointment with GRANULATING MACHINE OPERATOR, Dr. Bingham on 03/25/19. Has not seen her PMD yet. She reports that her symptoms have been progressively getting worse and got much worse over the past 2 days. She has been managing her pain with ibuprofen and naproxen - History of Current Complaint Chief Complaint: UCAbdominalPain Stated Complaint: LOWER BACK RIGHT SIDE PELVIS PAIN Time Seen by Provider: 03/21/19 18:35 Hx Obtained From: Patient Hx Last Menstrual Period: hysterectomy Pain Intensity: 8 Allergies/Adverse Reactions: Allergies Allergy/AdvReac Type Severity Reaction Status Date / Time seasonal Allergy Eyes Uncoded 11/28/18 19:12 Itchy/Swollen/Red/Watery Home Medications: Home Medications Naproxen [Naproxen 500 mg tab] 500 mg PO ONCE PRN 03/21/19 [History Confirmed ] Ondansetron ODT TAB* [Zofran 4 MG Odt TAB*] 4 mg PO Q6H PRN 03/21/19 [History Confirmed 03/21/19] PMH/Surg Hx/FS Hx/Imm Hx - Additional Past Medical History Additional PMH: Migraines Anxiety Depression bleeding Status post hysterectomy in 2017 Previously Healthy: Yes - Surgical History Surgical History: Yes Surgery Procedure, Year, and Place: 2010 & 2011 Sinus surgeries, [facility] (Dr. Torres). TUBES TIED--08/25/15. hysterectomy 11/2016 - Family History Known Family History: Positive: Cardiac Disease, Hypertension, Diabetes - Social History Alcohol Use: None Substance Use Type: None Smoking Status (MU): Current Some Day Smoker Type: Cigarettes Amount Used/How Often: LESS THAN 1/2 PPD Length of Time of Smoking/Using Tobacco: 8 YRS Have You Smoked in the Last Year: Yes When Did the Patient Quit Smoking/Using Tobacco: 2018 Household Exposure Type: Cigarettes - Immunization History Most Recent Influenza Vaccination: [id number] Most Recent Tetanus Shot: 03/16/15 Most Recent Pneumonia Vaccination: none Vaccination Up to Date: Yes Review of Systems All Other Systems Reviewed And Are Negative: Yes Constitutional: Positive: Negative Skin: Positive: Negative Eyes: Positive: Negative ENT: Positive: Negative Respiratory: Positive: Negative Cardiovascular: Positive: Negative Gastrointestinal: Positive: Abdominal Pain, Nausea, Other - 2 loose stools today. Negative: Vomiting Genitourinary: Positive: Frequency. Negative: Dysuria, Hematuria, Urgency, Vaginal/Penile Burning, Vaginal/Penile Itching, Vaginal/Penile Discharge Motor: Positive: Negative Neurovascular: Positive: Negative Musculoskeletal: Positive: Negative Neurological: Positive: Negative Psychological: Positive: Negative Is Patient Immunocompromised?: No Physical Exam - Summary Physical Exam Summary: Physical Exam: Const: Appears well. No signs of apparent distress present. Alert and oriented x 3. Musculo: Walks with a normal gait. Head/Face: Atraumatic, normocephalic on inspection. Eyes: EOMI and PERRLA in both eyes. Conjunctivae clear. No discharge noted ENT: Hearing normal Respiratory: Respirations are unlabored. Lungs clear to auscultation bilaterally, no wheezing , rhonchi or rales noted . CVS: Regular rate and Rhythm, S1S2 normal , no murmurs identified. Extremities: Peripheral circulation is grossly normal. Pulses 2+ Abdomen : Soft , significant tenderness to palpation is noted at the right lower quadrant , even more tenderness is in the right upper quadrant . Mayberry's sign is positive , iliopsoas sign is positive . Rovsing sign is negative , mild guarding , no rigidity , nondistended. No rebound tenderness. Bowel sounds present normal . No CVA tenderness bilaterally. Skin: No lesions or rash located on the upper extremities or on the lower extremities. Neuro: Cranial nerves II to XII intact, motor and sensory intact. DTR Intact bilaterally. Mood is normal. Affect is normal. Triage Information Reviewed: Yes Vital Signs: Initial Vital Signs Temp 97.8 F 03/21/19 18:23 Pulse 102 03/21/19 18:23 Resp 19 03/21/19 18:23 BP 114/71 03/21/19 18:23 Pulse Ox 99 03/21/19 18:23 Vital Signs Reviewed: Yes Abd Pain Female Course/Dx - Course Course Of Treatment: During the visit today, we obtained records of her visit at [facility] on . pertinent findings: -Abdominal/pelvic CT scan without IV contrast fatty liver with hepatomegaly, right nephrolithiasis- small right renal calculi, overweight and cyst measuring 3.7 axis 3.3 cm with mild to moderate inflammation or scarring present in adjacent mesenteric fat. -CT scan of lumbar spine: No acute processes involving the lumbar spine, right nephrolithiasis without any hydronephrosis -Pelvic transvaginal ultrasound: Left ovarian cyst 3.1 X1.9 and X2.3 centimeter arterial and venous flow noted in the left ovary. As per the note she had her right ovary removed 2 weeks prior to her visit to the ER. She was given Toradol, fentanyl, Valium and Reglan and her symptoms improved. She was discharged with a diagnosis of back pain without any red flag .her sedimentation rate was normal . She was recommended to follow up with her PMD and referral to the urology . She does not have an appointment with urology and has appointment with her OB/ WEIGHT CONTROL LECTURER, Dr. Bingham on 03/25/19. Because of her nausea she was given 1 dose of Zofran and 1 dose of norco. Urine analysis was done Suspect that her renal stone might have descended to ureter versus worsening of intra-abdominal process that was noted on the CT on 03/09 might have progressed further as she is in significant pain. Also possibility of appendicitis versus cholecystitis cannot be completely ruled out. Patient needs additional testing including lab work and possibly CT with contrast, thus ER transfer advised and patient agrees. Report called to the ER provider( Madeleine Bean NP) at [facility], advised provider of the history, physical examination, and duration of illness and labs /imaging so far and the need for definitive management. I discussed the findings and further plan.Patient expressed understanding . Since she was given a narcotic medication, she had called her friend who will drive her to the ER. - Differential Dx/Diagnosis Differential Diagnosis: Appendicitis, Other - cholecystitis Provider Diagnosis: Renal calculi, Abdominal pain, Ovarian cyst Discharge - Sign-Out/Discharge Documenting (check all that apply): Patient Departure All imaging exams completed and their final reports reviewed: No Studies - Discharge Plan Condition: Stable Disposition: HOME-RECOMMEND TO ED Patient Education Materials: Kidney Stones (ED), Renal Colic (ED), Abdominal Pain (ED) Referrals: Ira Parmar MD [Primary Care Provider] - 2 Days Additional Instructions: Patient needs additional testing including lab work and possibly CT with contrast, thus ER transfer advised and patient agrees. Report called to the ER provider( Madeleine Bean NP) at [facility], advised provider of the history, physical examination, and duration of illness and labs /imaging so far and the need for definitive management. Her friend will drive her to the ER. - Billing Disposition and Condition Condition: STABLE Disposition: Home-Recommend to ED
[2019-03-21] MEDS ORDERED: Ondansetron ODT TAB* 4 MG PO ONE (18:51)
[2019-03-21] MEDS ORDERED: HYDROcodone/ACETAMIN 5-325 MG* 1 TAB PO ONE (19:27)
== END 2019-03-21 19:49 | disposition home health service (06) ==
LOC: UCCORT 17:52
DX: N20.0 Calculus of kidney (principal); N83.209 Unspecified ovarian cyst, unspecified side; R10.31 Right lower quadrant pain; F17.210 Nicotine dependence, cigarettes, uncomplicated; Z91.09 Other allergy status, other than to drugs and biological substances
CPT/HCPCS: 81003; 99212; A9270-GY; G0463

== ENCOUNTER 2019-04-22 16:44 | Emergency (ER) | payer MEDICARE, MEDICAID ==
[2019-04-22 17:32] VITALS: BP 93/58
[2019-04-22] MEDS ORDERED: Ketorolac INJ* 30 MG/ML 1 ML VIAL IM ONE (17:59)
--- NOTE | 2019-04-22 18:08 | UC ---
Back Pain HPI - HPI Summary HPI Summary: pt is c/o pain to her L low back that sometimes radiates into her L leg x 3 weeks. she was seen here last month for abdominal pain that involved her back but that was something different. she went to the ER and was dx with an ovarian cyst. no hx of injury. taking IB without relief. LD was 11am. hx cervical radiculopathy and is tx by [facility] neurology. - History of Current Complaint Chief Complaint: UCBackPain Stated Complaint: LOW BACK PAIN Time Seen by Provider: 04/22/19 17:48 Hx Obtained From: Patient Hx Last Menstrual Period: hysterectomy Timing: Constant Pain Intensity: 7 Aggravating Factor(s): Movement Alleviating Factor(s): Rest Associated Signs And Symptoms: Negative: Fever, Weakness, Abdominal Pain, Flank Pain, Bladder Incontinence, Bowel Incontinence - Allergies/Home Medications Allergies/Adverse Reactions: Allergies Allergy/AdvReac Type Severity Reaction Status Date / Time seasonal Allergy Eyes Uncoded 04/22/19 17:32 Itchy/Swollen/Red/Watery Home Medications: Home Medications Onabotulinimtoxina 100 UNITS* [Botox 100 UNITS*] 100 units .SEE ORDER 04/22/19 [ History] PMH/Surg Hx/FS Hx/Imm Hx - Additional Past Medical History Additional PMH: cervical disc disease, fibromyalgia, migraines, ovarian cyst. - Surgical History Surgical History: Yes Surgery Procedure, Year, and Place: 2010 & 2011 Sinus surgeries, [facility] (Dr. Torres). TUBES TIED--08/25/15. hysterectomy 11/2016 - Family History Known Family History: Positive: Cardiac Disease, Hypertension, Diabetes - Social History Alcohol Use: None Substance Use Type: None Smoking Status (MU): Current Some Day Smoker Type: Cigarettes Amount Used/How Often: LESS THAN 1/2 PPD Length of Time of Smoking/Using Tobacco: 8 YRS Have You Smoked in the Last Year: Yes When Did the Patient Quit Smoking/Using Tobacco: 2018 Household Exposure Type: Cigarettes - Immunization History Most Recent Influenza Vaccination: [id number] Most Recent Tetanus Shot: 03/16/15 Most Recent Pneumonia Vaccination: none Vaccination Up to Date: Yes Review of Systems All Other Systems Reviewed And Are Negative: No Constitutional: Negative: Fever Skin: Negative: Rash Gastrointestinal: Negative: Abdominal Pain Motor: Negative: Weakness Musculoskeletal: Positive: Decreased ROM - low back due to pain Neurological: Positive: Numbness - LLE. Negative: Weakness Physical Exam Triage Information Reviewed: Yes Appearance: Well-Appearing Vital Signs: Initial Vital Signs Temp 97.6 F 04/22/19 17:28 Pulse 90 04/22/19 17:28 Resp 16 04/22/19 17:28 BP 93/58 04/22/19 17:28 Pulse Ox 100 04/22/19 17:28 Vital Signs Reviewed: Yes Eyes: Positive: Conjunctiva Clear Neck: Positive: Supple, Nontender, No Lymphadenopathy, Other: - c-spine is non tender Respiratory: Positive: Lungs clear, Normal breath sounds Cardiovascular: Positive: RRR, No Murmur Abdomen Description: Positive: Nontender, No Organomegaly, Soft. Negative: Distended, Guarding, Pulsatile Mass Bowel Sounds: Positive: Present Musculoskeletal: Positive: Other: - Back: no deformity or rash. spine is non tender. tender over L lumbar region. limited rom lumbar region due to pain. 5/5 strength, 1+ reflexes and sensation intactx4. No saddle anesthesia. steady gait. negative straight leg raises. Neurological: Positive: Alert Psychological: Positive: Age Appropriate Behavior Skin Exam: Normal Skin: Negative: Rashes Back Pain Course/Dx - Differential Dx/Diagnosis Differential Diagnosis/HQI/PQRI: Other - no concern for acute abdomen, cauda equina, infection or fx. Provider Diagnosis: Low back pain, Lumbar radicular pain Discharge - Sign-Out/Discharge Documenting (check all that apply): Patient Departure All imaging exams completed and their final reports reviewed: No Studies - Discharge Plan Condition: Stable Disposition: HOME Prescriptions: Cyclobenzaprine TAB* [Flexeril 10 MG TAB*] 10 mg PO TID PRN #10 tab PRN Reason: Pain - Back methylPREDNISolone [Medrol Dosepak 4 MG*] 0 mg PO .SEE ANGELES INSTRUCTION #1 tab Patient Education Materials: Back Pain (ED), Lumbar Radiculopathy (ED) Referrals: Ira Parmar MD [Primary Care Provider] - 6 Days Additional Instructions: STOP THE MOTRIN AND ALEVE - Billing Disposition and Condition Condition: STABLE Disposition: Home
== END 2019-04-22 18:47 | disposition home or self-care (01) ==
LOC: UCCORT 16:44
DX: M54.16 Radiculopathy, lumbar region (principal); F17.210 Nicotine dependence, cigarettes, uncomplicated
CPT/HCPCS: 99212; G0463; J1885

== ENCOUNTER 2019-09-16 09:08 | Emergency (ER) | payer MEDICARE, MEDICAID ==
[2019-09-16 09:27] VITALS: BP 116/80
--- NOTE | 2019-09-16 09:45 | UC ---
Respiratory Complaint HPI - HPI Summary HPI Summary: cough x 4 weeks started as productive , no is a dry cough , worse with deep breathing , better with rest and fluid, no nasal congest, no sore throat, no GERD , no Asthma, no PND denies any fever, - History of Current Complaint Chief Complaint: UCRespiratory Stated Complaint: COUGH Time Seen by Provider: 09/16/19 09:16 Hx Obtained From: Patient Hx Last Menstrual Period: hysterectomy ?: No Onset/Duration: Gradual Onset, Still Present Timing: Constant Severity Initially: Moderate Severity Currently: Moderate Pain Intensity: 6 Character: Cough: Nonproductive Aggravating Factors: Exertion, Deep Breaths Alleviating Factors: Nothing Associated Signs And Symptoms: Negative: Dyspnea, Fever, Chills, Pleuritic Chest Pain, Wheezing, Hemoptysis, Calf Pain, Calf Swelling, URI, Nasal Congestion, Hoarseness - Allergies/Home Medications Allergies/Adverse Reactions: Allergies Allergy/AdvReac Type Severity Reaction Status Date / Time seasonal Allergy Eyes Uncoded 09/16/19 09:21 Itchy/Swollen/Red/Watery PMH/Surg Hx/FS Hx/Imm Hx Previously Healthy: Yes - Surgical History Surgical History: Yes Surgery Procedure, Year, and Place: 2010 & 2011 Sinus surgeries, [facility] (Dr. Torres). TUBES TIED--08/25/15. hysterectomy 11/2016 - Family History Known Family History: Positive: Cardiac Disease, Hypertension, Diabetes - Social History Alcohol Use: Rare Substance Use Type: None Smoking Status (MU): Light Every Day Tobacco Smoker Type: Cigarettes Amount Used/How Often: 1/2 PPD Length of Time of Smoking/Using Tobacco: 8 YRS Have You Smoked in the Last Year: Yes When Did the Patient Quit Smoking/Using Tobacco: 2018 Household Exposure Type: Cigarettes - Immunization History Most Recent Influenza Vaccination: 5642-3551 Most Recent Tetanus Shot: 03/16/15 Most Recent Pneumonia Vaccination: none Vaccination Up to Date: Yes Review of Systems All Other Systems Reviewed And Are Negative: Yes Constitutional: Positive: Negative Skin: Positive: Negative Eyes: Positive: Negative ENT: Positive: Negative Respiratory: Positive: Cough. Negative: Shortness Of Breath Cardiovascular: Positive: Negative Is Patient Immunocompromised?: No Physical Exam Triage Information Reviewed: Yes Appearance: Well-Appearing, No Pain Distress, Well-Nourished Vital Signs: Initial Vital Signs Temp 98.3 F 09/16/19 09:22 Pulse 95 09/16/19 09:22 Resp 18 09/16/19 09:22 BP 116/80 09/16/19 09:22 Pulse Ox 99 09/16/19 09:22 Vital Signs Reviewed: Yes Eye Exam: Normal Eyes: Positive: Conjunctiva Clear ENT: Positive: Normal ENT inspection, Hearing grossly normal, Pharynx normal, Pharyngeal erythema Neck exam: Normal Neck: Positive: Supple, Nontender, No Lymphadenopathy Respiratory: Positive: Chest non-tender, Lungs clear, Normal breath sounds Cardiovascular: Positive: RRR, No Murmur, Pulses Normal Abdominal Exam: Normal Skin Exam: Normal Respiratory Course/Dx - Differential Dx/Diagnosis Provider Diagnosis: Viral bronchitis Discharge ED - Sign-Out/Discharge Documenting (check all that apply): Patient Departure All imaging exams completed and their final reports reviewed: No Studies - Discharge Plan Condition: Stable Disposition: HOME Prescriptions: Albuterol HFA INHALER* [Ventolin HFA Inhaler*] 2 puff INH Q6H PRN #1 mdi PRN Reason: Cough Benzonatate CAP* [Tessalon 100 MG CAP*] 100 mg PO TID PRN #21 cap PRN Reason: Cough Patient Education Materials: Acute Bronchitis (ED) Referrals: Ira Parmar MD [Primary Care Provider] - If Needed - Billing Disposition and Condition Condition: STABLE Disposition: Home
== END 2019-09-16 09:43 | disposition home or self-care (01) ==
LOC: UCCORT 09:08
DX: J20.8 Acute bronchitis due to other specified organisms (principal); F17.210 Nicotine dependence, cigarettes, uncomplicated; Z91.09 Other allergy status, other than to drugs and biological substances
CPT/HCPCS: 99212; G0463

== ENCOUNTER 2019-09-29 15:57 | Emergency (ER) | payer MEDICARE, MEDICAID ==
--- OUTSIDE RECORDS SUMMARY | 2019-09-29 16:51 | XMS REPORT | Continuity of Care Document ---
:1990 External Reference #:[id number] Author Name Cha Alvarenga M.D. Address [address] [place] [address] Care Team Providers Name Role Phone Ira Parmar MD - Family Care Team Information Doctor Of Pharmacy Medicine Problems Active Problems Provider Date Hydronephrosis Cha Alvarenga M.D. Onset: 06/30/2019 Retention of urine Cha Alvarenga M.D. Onset: 01/22/2018 Social History Type Date Description Comments Sex Unknown ETOH Use Denies alcohol use Tobacco Use Start: Unknown Patient is a current smoker, 1/2pk or less smokes every day Recreational Drug Use Never Used Drugs Smoking Status Reviewed: 07/25/19 Patient is a current smoker, 1/2pk or less smokes every day Allergies, Adverse Reactions, Alerts Description No Known Drug Allergies Medications Active Medications SIG Qnty Indications Ordering Date Provider Bactrim DS 1 tab by mouth 1tabs Colette, 07/29/2019 800-160mg once given in Malathi Eubanks Tablets office before procedure Naproxen Kit Every 12 Hours as 14tabs Unknown 01/21/2018 500mg Tablets needed for Pelvic pain Magnesium Oxide Take One Tablet Unknown By Mouth Every 400(241.3Mg) mg Tablets Day Rizatriptan Benzoate Take One Tablet Unknown 10mg By Mouth as Tablets Needed For Migraine Use as Soon as Migrai Topiramate 1 tablet by mouth Unknown 100mg Tablets qday Amitriptyline HCL Take One Tablet Unknown 25mg By Mouth Every Tablets Evening For 2 Weeks Then Increase To T Cyclobenzaprine HCL Take One To Two Unknown 5mg Tablets By Mouth Tablets Three Times A Day Vitamin B-12 ER qday Unknown 500mg Tablets ER Vitamin B-2 qday Unknown 100mg Tablets Fluoxetine HCL Take One Capsule Unknown 20mg By Mouth Every Capsules Day Aimovig Inject 140MG Into Unknown 70mg/ml Solution The Skin Every 30 Auto-Inject Days Medications Administered in Office Medication SIG Qnty Indications Ordering Provider Date Injection Cha Trimble M.D. 06/30/2019 Tromethamine 30 MG/mL (Toradol) Injection Immunizations Description No Information Available Vital Signs Date Vital Result Comment 08/14/2019 1:49pm BP Systolic 116 mmHg BP Diastolic 77 mmHg Body Temperature 98.4 F Heart Rate 98 /min Respiratory Rate 18 /min Height 64 inches 5'4" Weight 220.00 lb BMI (Body Mass Index) 37.8 kg/m2 BSA (Body Surface Area) 2.04 m2 Brooks body weight in kilograms 54 kg O2 % BldC Oximetry 99 % 06/30/2019 3:14pm BP Systolic 119 mmHg BP Diastolic 85 mmHg Body Temperature 98.0 F Heart Rate 97 /min Respiratory Rate 16 /min Height 64 inches 5'4" Weight 220.00 lb Stated BMI (Body Mass Index) 37.8 kg/m2 BSA (Body Surface Area) 2.04 m2 Brooks body weight in kilograms 54 kg O2 % BldC Oximetry 98 % Pain Level 7 Bilateral flank and left sided Results Test Date Facility Test Result H/L Range Note CBC 07/01/2019 [facility] White Blood Count 7.1 K/uL Normal 3.1-10.7 1 [address] [place] [address] [phone] Red Blood Count 4.51 M/uL Normal 3.90-5.40 Hemoglobin 12.8 gm/dL Normal 11.6-15.8 Hematocrit 39.8 % Normal 36.0-46.1 Mean Cell Volume 88.2 fl Normal 80.9-99.0 Mean Corpuscular HGB 28.4 pg Normal 25.9-32.7 Mean Corpuscular HGB Conc 32.2 g/dL Normal 30.8-34.3 Platelet Count 277 K/uL Normal 155-360 Red Cell Distri Width SD 43.6 fl Normal 36-47 Red Cell Distri Width %CV 13.6 % Normal 11.7-14.4 Mean Platelet Volume 9.8 fl Normal 8.9-12.4 NRBC % 0.0 /100WBC < 10/ 100 WBC Basic Metabolic Panel 07/01/2019 [facility] Glucose 93 mg/dL Normal 74-106 [address] [place], [place] [id number] [phone] BUN 13 mg/dL Normal 7-18 Creatinine 0.9 mg/dL Normal 0.6-1.3 Glom Filtration Rate, Estimate >60 mL/min >60 If >60 mL/min >60 2 BUN/Creat 14.4 ratio Sodium 140 mmol/L Normal 136-145 Potassium 4.1 mmol/L Normal 3.5-5.1 Chloride 112 mmol/L High 98-107 Carbon Dioxide 22 mmol/L Normal 21-32 Anion Gap 6 mEq/L Low 8-16 Calcium 8.7 mg/dL Normal 8.5-10.1 Type And Screen 07/01/2019 [facility] Patient Blood Type A POS Normal [address] [place], [place] [id number] [phone] Antibody Screen Negative Normal Negative Laboratory test 07/01/2019 [facility] Urine HCG NEGATIVE Negative 3 finding [address] [facility] (Qualitative) [place] [address] [phone] Urine Dipstick 06/30/2019 [facility] Inhouse Ua Color Yellow Yellow Ua Clarity Clear Clear Ua Leuko Negative Negative Ua Nitrite Negative Negative Ua Urobilinogen 0.2 0.2 - 1.0 E.U./dL Ua Protein Negative Negative Ua PH 7.0 6.5-7.5 Ua Blood Negative Negative Ua Specific [place] 1.005 Low 1.010-1.030 Ua Ketones Negative Negative Ua Bilirubin Negative Negative Ua Glucose Negative Negative 1 HYDRONEPHROSIS 10659 18942 2 Note: Persistent reduction for 3 months or more in an eGFR <60 mL/min/1.73 m2 defines CKD. Patients with eGFR values >/=60 mL/min/1.73 m2 may also have CKD if evidence of persistent proteinuria is present. The original MDRD equation for estimated GFR is not valid for patients less than 18 years of age. Additional information may be found at www.kdoqi.org. 3 FIRST MORNING SPECIMENS GENERALLY CONTAIN THE HIGHEST CONCENTRATION OF HCG AND ARE RECOMMENDED FOR EARLY DETECTION OF . Method: Quidel QuickVue One-Step Immunoassay Procedures Date Code Description Status 07/01/2019 69583 Cystourethroscopy W/ Insert Indwelling Ureteral Stent Completed 06/30/2019 89050 Theraputic Or Diagnostic Injection Completed Medical Devices Description No Information Available Encounters Type Date Location Provider Dx Diagnosis Office Visit 06/30/2019 Urology Cha Alvarenga N13.39 Other hydronephrosis 3:15p M.Roselyn Z71.6 Tobacco abuse counseling Assessments Date Code Description Provider 08/14/2019 N13.39 Other hydronephrosis Cha Alvarenga M.D. 07/26/2019 R11.0 Nausea Shivam Contreras MD 07/26/2019 R19.15 Other abnormal bowel sounds Shivam Contreras MD 07/26/2019 N83.291 Other ovarian cyst, right side Shivam Contreras MD 07/26/2019 R10.31 Right lower quadrant pain Shivam Contreras MD 07/25/2019 R11.0 Nausea Shivam Contreras MD 07/25/2019 R19.15 Other abnormal bowel sounds Shivam Contreras MD 07/25/2019 N83.291 Other ovarian cyst, right side Shivam Contreras MD 07/25/2019 R10.31 Right lower quadrant pain Shivam Contreras MD 07/24/2019 K66.8 Other specified disorders of peritoneum Adán Reyes MD, FACS 07/24/2019 R11.0 Nausea Shivam Contreras MD 07/24/2019 R10.813 Right lower quadrant abdominal tenderness Adán Reyes MD,FACS 07/24/2019 R19.15 Other abnormal bowel sounds Shivam Contreras MD 07/24/2019 R10.30 Lower abdominal pain, unspecified Adán Reyes MD,FACS 07/24/2019 R93.5 Abnormal findings on diagnostic imaging of Adán Reyes MD,FACS other abdominal regions, including retroperitoneum 07/24/2019 N83.291 Other ovarian cyst, right side Shivam Contreras MD 07/24/2019 R10.31 Right lower quadrant pain Shivam Contreras MD 07/23/2019 K66.8 Other specified disorders of peritoneum Adán Reyes MD, FACS 07/23/2019 R11.0 Nausea Shivam Contreras MD 07/23/2019 R19.15 Other abnormal bowel sounds Shivam Contreras MD 07/23/2019 R10.813 Right lower quadrant abdominal tenderness Adán Reyes MD,FACS 07/23/2019 R10.30 Lower abdominal pain, unspecified Adán Reyes MD,FACS 07/23/2019 R93.5 Abnormal findings on diagnostic imaging of Adán Reyes MD,[facility] other abdominal regions, including retroperitoneum 07/23/2019 N83.291 Other ovarian cyst, right side Shivam Contreras MD 07/23/2019 R10.31 Right lower quadrant pain Shivam Contreras MD 07/22/2019 R10.31 Right lower quadrant pain Cha Alvarenga M.D. 07/22/2019 K66.8 Other specified disorders of peritoneum Adán Reyes MD, [facility] 07/22/2019 R11.0 Nausea Brice Florentino MD 07/22/2019 R11.0 Nausea Cha Alvarenga M.D. 07/22/2019 R10.813 Right lower quadrant abdominal tenderness Adán Reyes MD,[facility] 07/22/2019 R19.15 Other abnormal bowel sounds Brice Florentino MD 07/22/2019 N83.291 Other ovarian cyst, right side Cha Alvarenga M.D. 07/22/2019 R10.30 Lower abdominal pain, unspecified Adán Reyes MD,[facility] 07/22/2019 R10.9 Unspecified abdominal pain Brice Florentino MD 07/22/2019 Z96.0 Presence of urogenital implants Cha Alvarenga M.D. 07/22/2019 R93.5 Abnormal findings on diagnostic imaging of Adán Reyes MD,[facility] other abdominal regions, including retroperitoneum 07/01/2019 N13.39 Other hydronephrosis Cha Alvarenga M.D. 06/30/2019 N13.39 Other hydronephrosis Cha Alvarenga M.D. 06/30/2019 Z71.6 Tobacco abuse counseling Cha Alvarenga M.D. Plan of Treatment No Information Available Functional Status Description No Information Available Mental Status Description No Information Available Referrals Description No Information Available
[2019-09-29 17:01] VITALS: BP 129/80
--- NOTE | 2019-09-29 17:15 | ED ---
Respiratory - HPI Summary HPI Summary: 29 yr old female with the complaint of persistent sinus pressure for most of the month. Post nasal drip, persistent coughing. She has a lot of post nasal drip. She was seen recently and put on inhaler and tessalon perles but they have not helped. She has chills and a lot of sinus pressure. No other complaints. - History of Current Complaint Chief Complaint: UCRespiratory Stated Complaint: COUGH,CONGESTION Time Seen by Provider: 09/29/19 17:08 Pain Intensity: 8 - Allergy/Home Medications Allergies/Adverse Reactions: Allergies Allergy/AdvReac Type Severity Reaction Status Date / Time seasonal Allergy Eyes Uncoded 09/29/19 17:01 Itchy/Swollen/Red/Watery Home Medications: Home Medications D-Methorphan/PE/Acetaminophen [Vicks Dayquil Cold & Flu 10-5-325 mg/15Ml] 1 liq PO BID PRN 09/29/19 [History Confirmed 09/29/19] Naproxen Sodium [Naproxen 220 mg] 440 mg PO ONCE PRN 09/29/19 [History Confirmed 09/29/19] PMH/Surg Hx/FS Hx/Imm Hx Endocrine/Hematology History: Denies: Hx Diabetes Cardiovascular History: Denies: Hx Hypertension, Hx Pacemaker/ICD Respiratory History: Denies: Hx Asthma, Hx Chronic Obstructive Pulmonary Disease (COPD) GI History: Reports: Hx Gastroesophageal Reflux Disease - HAS MEDS AVAILABLE History: Reports: Hx Kidney Stones - Hx OF,x2, PASSED ON OWN, BOTH TIMES Sensory History: Reports: Hx Contacts or Glasses - GLASSES Opthamlomology History: Reports: Hx Contacts or Glasses - GLASSES Neurological History: Reports: Hx Headaches, Hx Migraine - USUALLY 2x WK Psychiatric History: Reports: Hx Anxiety - HAS PRN MEDS, USES OCCASSIONALLY, Hx Depression Denies: Hx Panic Disorder - Surgical History Surgery Procedure, Year, and Place: 2010 & 2011 Sinus surgeries, [facility] (Dr. Torres). TUBES TIED--08/25/15; kidney stent placement then stent removed 2018. hysterectomy 11/2016 Hx Anesthesia Reactions: No Infectious Disease History: No Infectious Disease History: Denies: Traveled Outside the [place] in Last 30 Days - Family History Known Family History: Positive: Cardiac Disease, Hypertension, Diabetes - Social History Occupation: Employed Full-time Alcohol Use: Rare Substance Use Type: Reports: None Smoking Status (MU): Light Every Day Tobacco Smoker Type: Cigarettes Amount Used/How Often: 1/2 PPD Length of Time of Smoking/Using Tobacco: 8 YRS Have You Smoked in the Last Year: Yes Review of Systems Positive: Chills Positive: Sore Throat, Nasal Discharge Positive: Cough All Other Systems Reviewed And Are Negative: Yes Physical Exam Triage Information Reviewed: Yes Vital Signs On Initial Exam: Initial Vitals Temp Pulse Resp BP Pulse Ox 98.1 F 95 20 129/80 100 09/29/19 16:51 09/29/19 16:51 09/29/19 16:51 09/29/19 16:51 09/29/19 16:51 Vital Signs Reviewed: Yes Appearance: Positive: Obese Skin: Positive: Warm, Skin Color Reflects Adequate Perfusion Head/Face: Positive: Normal Head/Face Inspection Eyes: Positive: EOMI ENT: Positive: Pharynx normal, Nasal congestion, Nasal drainage, TMs normal, Sinus tenderness, Uvula midline Neck: Positive: Nontender Respiratory/Lung Sounds: Positive: Clear to Auscultation, Breath Sounds Present Cardiovascular: Positive: RRR. Negative: Murmur Abdomen Description: Negative: Distended Musculoskeletal: Positive: Strength/ROM Intact Neurological: Positive: Sensory/Motor Intact, Alert, Oriented to Person Place, Time, CN Intact II-III, Normal Gait, Speech Normal Psychiatric: Positive: Normal Diagnostics - Vital Signs Vital Signs Temp Pulse Resp BP Pulse Ox 09/29/19 16:51 98.1 F 95 20 129/80 100 - Laboratory Lab Statement: Any lab studies that have been ordered have been reviewed, and results considered in the medical decision making process. Disposition - Course Course Of Treatment: 29 yr old with sinusitis, and acute bronchitis. Rx augmentin. add prednisone. FU with PMD. - Diagnoses Provider Diagnoses: Sinusitis, Acute bronchitis Discharge ED - Sign-Out/Discharge Documenting (check all that apply): Patient Departure All imaging exams completed and their final reports reviewed: No Studies - Discharge Plan Condition: Good Disposition: HOME Prescriptions: Amoxicillin/Clavulanate TAB* [Augmentin TAB 875*] 875 mg PO BID #20 tab predniSONE TAB* [Deltasone 20 MG TAB*] 40 mg PO DAILY #10 tab Patient Education Materials: Sinusitis (ED), Acute Bronchitis (ED) Forms: *Work Release Referrals: Ira Parmar MD [Primary Care Provider] - 2 Days - Billing Disposition and Condition Condition: GOOD Disposition: Home
== END 2019-09-29 17:24 | disposition home or self-care (01) ==
LOC: UCCORT 15:57
DX: J32.9 Chronic sinusitis, unspecified (principal); J20.9 Acute bronchitis, unspecified; K21.9 Gastro-esophageal reflux disease without esophagitis; F41.9 Anxiety disorder, unspecified; F17.210 Nicotine dependence, cigarettes, uncomplicated
CPT/HCPCS: 99202; G0463

== ENCOUNTER 2019-10-24 09:23 | Emergency (ER) | payer MEDICARE, MEDICAID ==
[2019-10-24 10:17] VITALS: BP 123/78
--- NOTE | 2019-10-24 10:28 | UC ---
Respiratory Complaint HPI - HPI Summary HPI Summary: 29-year-old woman comes in with a chief complaint of cough chest congestion and sinus congestion for more than one month. Patient's been given an albuterol inhaler which is not helping very much. She was also on Augmentin for 10 days. She feels like her sinuses are congested but she is not really getting any rhinorrhea out of any more. She does have chest congestion but she has not seen the sputum. She does feel fatigued. She's had chills. No fevers measured. - History of Current Complaint Chief Complaint: UCGeneralIllness Stated Complaint: CHEST CONGESTION, COUGH Time Seen by Provider: 10/24/19 10:17 Hx Last Menstrual Period: doesn't get Pain Intensity: 5 - Allergies/Home Medications Allergies/Adverse Reactions: Allergies Allergy/AdvReac Type Severity Reaction Status Date / Time seasonal Allergy Eyes Uncoded 10/24/19 10:17 Itchy/Swollen/Red/Watery Home Medications: Home Medications Ondansetron ODT TAB* [Zofran 4 MG Odt TAB*] 4 mg PO DAILY PRN 10/24/19 [History Confirmed 10/24/19] PMH/Surg Hx/FS Hx/Imm Hx Previously Healthy: Yes - Surgical History Surgical History: Yes Surgery Procedure, Year, and Place: 2010 & 2011 Sinus surgeries, [facility] (Dr. Torres). TUBES TIED--08/25/15; kidney stent placement then stent removed 2018. hysterectomy 11/2016 - Family History Known Family History: Positive: Cardiac Disease, Hypertension, Diabetes - Social History Alcohol Use: Rare Substance Use Type: None Smoking Status (MU): Light Every Day Tobacco Smoker Type: Cigarettes Amount Used/How Often: 1/2 PPD Length of Time of Smoking/Using Tobacco: 8 YRS Have You Smoked in the Last Year: Yes When Did the Patient Quit Smoking/Using Tobacco: 2018 Household Exposure Type: Cigarettes - Immunization History Most Recent Influenza Vaccination: 8544-3607 Most Recent Tetanus Shot: 03/16/15 Most Recent Pneumonia Vaccination: none Vaccination Up to Date: Yes Review of Systems All Other Systems Reviewed And Are Negative: Yes Constitutional: Positive: Fatigue, Other - see hpi Skin: Positive: Negative Eyes: Positive: Negative ENT: Positive: Nasal Discharge, Sinus Congestion Respiratory: Positive: Cough, Other - see hpi Cardiovascular: Positive: Negative Gastrointestinal: Positive: Negative Motor: Positive: Negative Neurovascular: Positive: Negative Musculoskeletal: Positive: Arthralgia Neurological: Positive: Negative Psychological: Positive: Negative Is Patient Immunocompromised?: No Physical Exam Triage Information Reviewed: Yes Appearance: No Pain Distress, Well-Nourished, Ill-Appearing - mild Vital Signs: Initial Vital Signs Temp 97.9 F 10/24/19 10:15 Pulse 93 10/24/19 10:15 Resp 18 10/24/19 10:15 BP 123/78 10/24/19 10:15 Pulse Ox 98 10/24/19 10:15 Vital Signs Reviewed: Yes Eye Exam: Normal Eyes: Positive: Conjunctiva Clear ENT: Positive: Pharyngeal erythema, Nasal congestion, TMs normal Neck: Positive: Supple Respiratory: Positive: Rhonchi Cardiovascular: Positive: RRR Musculoskeletal: Positive: Strength Intact, ROM Intact, No Edema - No calf tenderness. Neurological: Positive: Alert Psychological: Positive: Age Appropriate Behavior Skin Exam: Normal Respiratory Course/Dx - Course Course Of Treatment: First Line Supervisor: Xin Spain S ([id number]) Appellate Law Clerk: MATHEUS (MATHEUS) Report Date: 10/24/2019 10:42:00 Report Status: Final Start of Report Content Patient Name: BENOIT ANDRADE Medical Record#: [id number] Ordering Physician: Zan Carpenter MD Acct.#: [id number] : 02/1990 Age: 29 Sex: F Location: [facility] Exam Date: 10/24/19 1023 ADM Status: REG ER Order Information: CHEST PA LAT 2 VWS Accession Number: [id number] CPT: 36197 Indication: Cough and congestion. 2 views of the chest including dual energy PA views demonstrate no mediastinal shift. Heart is of normal size and configuration. Lung zhao are clear. IMPRESSION: No active cardiopulmonary disease is noted. <Electronically signed by Xin Spain MD in OV> 10/24/19 1039 Dictated By: Xin Spain MD Dictated Date/Time: 10/24/19 1038 Transcribed Date/ Time: 10/24/19 1038 Copy to: CC:Ira Parmar MD; Zan Carpenter MD Imaging - [facility] Imaging - [facility] Imaging - [facility] [id number] [place] [address] ph [phone] ph [phone]) ph ) End of Report Content I discussed the x-ray with the patient. No pneumonia seen. Patient was on Augmentin in the past. Patient's respiratory symptoms were bothering her more than the sinuses therefore I will switch to doxycycline. Also try prednisone again. Patient heart he has an albuterol inhaler. Follow-up with primary care doctor get reevaluated sooner if worse or not improving. - Differential Dx/Diagnosis Provider Diagnosis: Bronchitis Discharge ED - Sign-Out/Discharge Documenting (check all that apply): Patient Departure All imaging exams completed and their final reports reviewed: Yes - Discharge Plan Condition: Stable Disposition: HOME Prescriptions: DOXYcycline CAP(*) [DOXYcycline 100MG CAP(*)] 100 mg PO BID #20 cap predniSONE TAB* [Deltasone 20 MG TAB*] 40 mg PO DAILY #10 tab Patient Education Materials: Acute Bronchitis (ED) Referrals: Ira Parmar MD [Primary Care Provider] - Additional Instructions: FOLLOW UP WITH YOUR DOCTOR IF NOT COMPLETELY IMPROVED. GET REEVALUATED SOONER IF NOT IMPROVING OR WORSE OR ANY QUESTIONS OR CONCERNS. - Billing Disposition and Condition Condition: STABLE Disposition: Home
== END 2019-10-24 11:10 | disposition home or self-care (01) ==
LOC: UCCORT 09:23
DX: J40 Bronchitis, not specified as acute or chronic (principal); R09.81 Nasal congestion; F12.10 Cannabis abuse, uncomplicated; Z91.09 Other allergy status, other than to drugs and biological substances
CPT/HCPCS: 71046; 99212; G0463

== ENCOUNTER 2019-11-21 11:14 | Emergency (ER) | payer MEDICARE, MEDICAID ==
[2019-11-21 13:01] VITALS: BP 114/74
--- NOTE | 2019-11-21 13:29 | UC ---
FLU HPI - HPI Summary HPI Summary: 29-year-old female presents with 2 day history of fever, fatigue, body aches, general malaise, nasal congestion, postnasal drip, bilateral ear fullness, sore throat, and occasionally productive cough. Max temperature of 102 F. Associated with some mild nausea. Denies chest pain, shortness of breath, abdominal pain, vomiting, or diarrhea. - History of Current Complaint Chief Complaint: UCRespiratory Stated Complaint: EARS SORE THROAT FEVER Time Seen by Provider: 11/21/19 13:13 Hx Obtained From: Patient Hx Last Menstrual Period: doesn't get Pain Intensity: 6 - Allergy/Home Medications Allergies/Adverse Reactions: Allergies Allergy/AdvReac Type Severity Reaction Status Date / Time hydrocodone AdvReac "Nauseating Verified 11/21/19 12:56 Headache" seasonal Allergy Eyes Uncoded 10/24/19 10:17 Itchy/Swollen/Red/Watery Home Medications: Home Medications Chlorphenir/Phenyleph/Aspirin [Zoe-Mouthcard Plus Cold 2-7.8-325 mg] 2 tab PO Q4H PRN 11/21/19 [History Confirmed 11/21/19] Ibuprofen TAB* [Advil TAB*] 600 mg PO Q6H PRN 11/21/19 [History Confirmed ] PMH/Surg Hx/FS Hx/Imm Hx GI/ History: Gastroesophageal Reflux Neurological History: Migraine - Surgical History Surgical History: Yes Surgery Procedure, Year, and Place: 2010 & 2011 Sinus surgeries, [facility] (Dr. Torres). TUBES TIED--08/25/15; kidney stent placement then stent removed 2018. hysterectomy 11/2016 - Family History Known Family History: Positive: Cardiac Disease, Hypertension, Diabetes - Social History Occupation: Disabled Lives: With Family Alcohol Use: Rare Substance Use Type: None Smoking Status (MU): Heavy Every Day Tobacco Smoker Type: Cigarettes Amount Used/How Often: 1/2 PPD Length of Time of Smoking/Using Tobacco: Since Age 16 Have You Smoked in the Last Year: Yes When Did the Patient Quit Smoking/Using Tobacco: 2018 Household Exposure Type: Cigarettes - Immunization History Most Recent Influenza Vaccination: [id number] Most Recent Tetanus Shot: 03/16/15 Most Recent Pneumonia Vaccination: none Vaccination Up to Date: Yes Review of Systems All Other Systems Reviewed And Are Negative: Yes Constitutional: Positive: Fever, Fatigue Skin: Negative: Rash Eyes: Negative: Drainage, Eye Redness ENT: Positive: Sore Throat, Ear Ache, Nasal Discharge, Sinus Congestion, Sinus Pain/Tenderness Respiratory: Positive: Cough. Negative: Shortness Of Breath Cardiovascular: Negative: Palpitations, Chest Pain Gastrointestinal: Positive: Nausea. Negative: Abdominal Pain, Vomiting, Diarrhea Genitourinary: Positive: Negative Musculoskeletal: Positive: Negative Neurological: Positive: Negative Is Patient Immunocompromised?: No Physical Exam - Summary Physical Exam Summary: GENERAL APPEARANCE: Alert and cooperative obese female who appears to be in no acute distress. EYES: Conjunctiva clear. No drainage. EARS: External auditory canals and tympanic membranes clear, hearing grossly intact. NOSE: Moderate nasal congestion. Clear nasal discharge. THROAT: Pharyngeal erythema with post-nasal drip. No tonsilar inflammation, swelling, exudate, or lesions. Uvula midline. NECK: Neck supple, non-tender without lymphadenopathy. CARDIAC: Normal S1 and S2. No S3, S4 or murmurs. Rhythm is regular. There is no peripheral edema, cyanosis or pallor. Extremities are warm and well perfused. Capillary refill is less than 2 seconds. Peripheral pulses intact. LUNGS: Clear to auscultation without rales, rhonchi, wheezing or diminished breath sounds. Dry, non-productive cough. ABDOMEN: Positive bowel sounds. Soft, nondistended, nontender. No guarding or rebound. No masses or hepatosplenomegally. MUSKULOSKELETAL: ROM intact to all extremities. No joint erythema or tenderness. Normal muscular development. Normal gait. SKIN: Skin normal color, texture and turgor with no lesions or eruptions. Triage Information Reviewed: Yes Vital Signs: Initial Vital Signs Temp 98.5 F 11/21/19 12:52 Pulse 100 11/21/19 12:52 Resp 18 11/21/19 12:52 BP 114/74 11/21/19 12:52 Pulse Ox 99 11/21/19 12:52 Vital Signs Reviewed: Yes Flu Course/Dx - Course Course Of Treatment: 29-year-old female presents with 2 day history of fever, fatigue, body aches, general malaise, nasal congestion, postnasal drip, bilateral ear fullness, sore throat, and occasionally productive cough. Max temperature of 102 F. Associated with some mild nausea. Denies chest pain, shortness of breath, abdominal pain, vomiting, or diarrhea. Afebrile. Vital signs stable. Patient had moderate nasal congestion, clear nasal discharge, normal TMs, pharyngeal erythema without tonsillar swelling or exudate, no cervical lymphadenopathy, clear bilateral breath sounds, dry nonproductive cough, and otherwise unremarkable exam. Rapid strep and rapid flu tests were negative. Reviewed results with the patient. Recommending symptomatic treatment for a viral upper respiratory infection. She is to follow-up with her primary care provider in 3- 5 days if symptoms are not improving. Anticipatory guidance and warning symptoms were reviewed with the patient. Verbalizes understanding and agrees with plan of care. - Differential Dx/Diagnosis Differential Diagnosis/HQI/PQRI: Bronchitis, Influenza, Pneumonia, Upper Respiratory Infection, Other - Pharyngitis Provider Diagnosis: Viral URI with cough Discharge ED - Sign-Out/Discharge Documenting (check all that apply): Patient Departure All imaging exams completed and their final reports reviewed: No Studies - Discharge Plan Condition: Stable Disposition: HOME Patient Education Materials: Upper Respiratory Infection (ED) Referrals: Ira Parmar MD [Primary Care Provider] - 3 Days (Follow up in 3-5 days if no improvement in symptoms) Additional Instructions: The rapid strep test and rapid flu test performed in the clinic today were negative. Your history and exam are consistent with a viral upper respiratory infection. Viral infections do not respond to antibiotics and are limited to the treatment of symptoms. Viral infections typically run their course in 7-10 days. Drink plenty of fluids to avoid dehydration especially if you are running any fever. Use a saline rinse kit such as Neti Pot or NeilMed at least twice a day to help thin secretions and promote drainage of the sinuses. Use fluticasone (Flonase) nasal spray 2 sprays each nostril once daily. He is an [id number] decongestant such as Sudafed according to directions to help with the nasal congestion. Take over the counter acetaminophen (Tylenol) or ibuprofen (Advil, Motrin) according to directions as needed for pain or fever. Use salt water gargles several times a day if you have a sore throat. You may also use Chloraseptic spray or Cepacol lonzenges according to directions which contain a numbing medication and can provide some temporary relief from your sore throat. Follow up with your primary care provider in 3-5 days if symptoms persist. Seek immediate medical attention in the emergency room if you have fever greater than 100.5 F despite taking acetaminophen or ibuprofen, have chest pain , difficulty breathing, are unable to swallow, or have any worsening of symptoms. - Billing Disposition and Condition Condition: STABLE Disposition: Home
[2019-11-21 13:48] LABS: Influenza A Molecular NEGATIVE (Negative); Influenza B Molecular NEGATIVE (Negative)
== END 2019-11-21 13:58 | disposition home or self-care (01) ==
LOC: UCCORT 11:14
DX: J06.9 Acute upper respiratory infection, unspecified (principal); R05 Cough; J34.89 Other specified disorders of nose and nasal sinuses; R11.0 Nausea; F17.210 Nicotine dependence, cigarettes, uncomplicated; Z79.82 Long term (current) use of aspirin; Z91.09 Other allergy status, other than to drugs and biological substances; Z88.5 Allergy status to narcotic agent
CPT/HCPCS: 87651; 99211; G0463

== ENCOUNTER 2019-12-22 11:45 | Emergency (ER) | payer MEDICARE, MEDICAID ==
--- OUTSIDE RECORDS SUMMARY | 2019-12-22 12:50 | XMS REPORT | Summary of Care ---
:1990 Author Organization [facility] Address [address] [place] [address] Care Team Providers Name Role Phone Iar Parmar MD Primary Care Provider Reason for Referral Pain Medicine (Routine) Status Reason Specialty Diagnoses / Referred By Referred To Procedures Contact Contact Open Pain Medicine Diagnoses Neck pain Carrington Cordero, ALICE [address] [place] [address] Email: [email or web address] Scheduling Instructions Get Authorization for orders: Yes No Make Appointment for procedure: Yes No Reason for Visit Reason Comments Follow-up Headache Encounter Details Date Type Department Care Team Description 12/02/2019 Office Visit [facility] Carrington Cordero Neck pain ( Primary Dx) Pain Medicine at [facility] [address] [facility] [phone] Allergies Active Allergy Reactions Severity Noted Date Comments Sumatriptan Shortness Of Breath High 04/12/2016 "makes neck muscles feel tight"- per pt documented as of this encounter (statuses as of 12/02/2019) Medications Medication Sig Dispensed Refills Start Date End Date Status omeprazole (PRILOSEC) Take 40 mg by 0 Active 40 MG capsule mouth naproxen (NAPROSYN) 500 Take 550 mg by 0 Active MG tablet mouth Two times daily with meals B Complex Vitamins (B Take by mouth 0 Active COMPLEX PO) Ondansetron 4 MG Oral Take 1 tablet 30 tablet 5 10/16/2019 04/13/2020 Active Tablet Disintegrating by mouth every (ZOFRAN-ODT)Indications 8 (eight) hours : Intractable chronic as needed for migraine without aura Nausea and with status migrainosus Rizatriptan Benzoate 10 Take 1 tablet 10 tablet 5 10/16/2019 Active MG Oral Tablet by mouth as (MAXALT)Indications: needed Intractable chronic migraine without aura and with status migrainosus documented as of this encounter (statuses as of 12/02/2019) Active Problems Problem Noted Date Fibromyalgia 07/24/2017 Overview: Chronic condition and stable. Anxiety and depression 04/15/2016 Chronic migraine without aura, intractable, without status migrainosus 2015 documented as of this encounter (statuses as of 12/02/2019) Social History Tobacco Use Types Packs/Day Years Used Date Light Tobacco Smoker Cigarettes 0.25 Smokeless Tobacco: Never Used Alcohol Use Drinks/Week oz/Week Comments Never Alcohol Habits Answer Date Recorded How often do you have a drink containing alcohol? Never 10/16/2019 How many drinks containing alcohol do you have on a typical Not asked day when you are drinking? How often do you have six or more drinks on one occasion? Not asked Sex Assigned at Date Recorded Not on file Job Start Date Occupation Industry Not on file Not on file Not on file Travel History Travel Start Travel End No recent travel history available. documented as of this encounter Last Filed Vital Signs Vital Sign Reading Time Taken Comments Blood Pressure 126/87 12/02/2019 3:12 PM EST Pulse 125 12/02/2019 3:12 PM EST Temperature - - Respiratory Rate - - Oxygen Saturation - - Inhaled Oxygen Concentration - - Weight 104.8 kg (231 lb) 12/02/2019 3:12 PM EST Height 162.6 cm (5' 4") 12/02/2019 3:12 PM EST Body Mass Index 39.65 12/02/2019 3:12 PM EST documented in this encounter Progress Notes Carrington Cordero NP - 12/02/2019 3:00 PM EST Subjective: Patient ID: Yael Hernandez is a 29 y.o. female. HPI 29 y.o. female with chronic migraines with aura.She presents for follow-up bilateral occipital nerveblocks #2. She reports having no relief. She has TPI in the past w/out relief. Today, she has headache 6/10 with neck pain. The neck pain tends to radiate into left hand at times. Now, she continues to have daily headaches with bed headaches 12-15 episodes a month lasting hours to days at each episode. She is getting Botox which helps at time. Yael has a past medical history of Anxiety, Chronic sinusitis, Depression, Fibromyalgia, and Migraine. Yael has Chronic migraine without aura, intractable, without status migrainosus; Anxiety and depression; and Fibromyalgia on their problem list. Yael has a past surgical history that includes Tubal ligation; Endometrial ablation; and Cyst Removal. Her family history includes Cancer in her father; Diabetes in her maternal grandmother; Heart disease in her maternal grandmother. Yael has a current medication list which includes the following prescription( s): b complex vitamins, naproxen, omeprazole, ondansetron, and rizatriptan. Current Outpatient Medications on File Prior to Visit Medication Sig Dispense Refill B Complex Vitamins (B COMPLEX PO) Take by mouth naproxen (NAPROSYN) 500 MG tablet Take 550 mg by mouth Two times daily with meals omeprazole (PRILOSEC) 40 MG capsule Take 40 mg by mouth Ondansetron 4 MG Oral Tablet Disintegrating (ZOFRAN-ODT) Take 1 tablet by mouth every 8 (eight) hours as needed for Nausea 30 tablet 5 Rizatriptan Benzoate 10 MG Oral Tablet (MAXALT) Take 1 tablet by mouth as needed 10 tablet 5 No current facility-administered medications on file prior to visit. Yael is allergic to sumatriptan. Review of Systems Constitutional: Negative for chills and fever. Eyes: Negative for photophobia and visual disturbance. Respiratory: Negative for chest tightness. Musculoskeletal: Positive for myalgias, neck pain and neck stiffness. Neurological: Positive for headaches. Objective: Visit Vitals BP 126/87 Pulse (!) 125 Ht 1.626 m (5' 4") Wt 104.8 kg (231 lb) LMP (LMP Unknown) BMI 39.65 kg/m XRAY C SPINE Physical Exam Constitutional: Appearance: Normal appearance. Neck: Musculoskeletal: Normal range of motion. Muscular tenderness present. Musculoskeletal: General: Tenderness present. Cervical back: She exhibits decreased range of motion, tenderness, swelling and pain. Back: Neurological: General: No focal deficit present. Mental Status: She is alert and oriented to person, place, and time. Sensory: No sensory deficit. Assessment: 29 y.o. female with chronic migraines with aura.Seh does have DDD of C spine per last xray which could contribute to cervicogenic DELACRUZ. Plan: 1.Obtain authorization for cervical facet injection. Thus far she did not have relief from occipitalnerve blocks nor TPI. 2.Neurology to continue medical management. Patient reports being taken off certain medications due recent kidney injury 3.Continue botox injections with neurology 4.rtc once approved Dr. Zacarias was available in the suite. documented in this encounter Plan of Treatment Date Type Specialty Care Team Description 01/01/2020 Office Visit Infusion Therapy Olegario Loza [place] [address] [phone] 03/18/2020 Office Visit Neurology Chanel Parham MBBS [address] [facility] 4th Floor [address] [place] [address] [phone] Name Type Priority Associated Diagnoses Order Schedule Orders Outpatient Referral Routine Neck pain Ordered: 12/02/2019 Health Maintenance Due Date Last Done Comments MMR Vaccines (1 of 1 - 01/28/1992 Standard series) Varicella Vaccines (1 of 2 - 01/28/1992 2-dose childhood series) Pneumococcal Vaccine: 1997 Pediatrics (0 to 5 Years) and At-Risk Patients (6 to 64 Years) (1 of 1 - PPSV23) HIV Screening 01/28/2004 DTaP,Tdap,and Td Vaccines (4 03/17/2011 09/16/2010, - Td) 07/17/2006, 1991 Cervical Cancer Screening 3 01/28/2012 years Influenza Vaccine 08/26/2019 Pneumococcal Vaccine: 65+ 01/28/2056 Years (1 of 2 - PCV13) HIB Vaccines Aged Out 1990 No longer eligible based on patient's age to complete this topic IPV Vaccines Aged Out 1990 No longer eligible based on patient's age to complete this topic Hepatitis B Vaccines Completed 05/17/2005, 01/17/2005, 09/01/2004 Hepatitis A Vaccines Aged Out No longer eligible based on patient's age to complete this topic documented as of this encounter Results Not on filedocumented in this encounter Visit Diagnoses Diagnosis Neck pain - Primary Cervicalgia documented in this encounter
[2019-12-22 13:09] VITALS: BP 116/76
[2019-12-22 13:27] LABS: Influenza A Molecular POSITIVE (Negative)
--- NOTE | 2019-12-22 13:37 | UC ---
FLU HPI - HPI Summary HPI Summary: 29-year-old female presents with sudden onset of general malaise, headache, body aches, chills, nasal congestion, sore throat, and a nonproductive cough last night. Max temperature of 103.4 F. She did not receive her flu vaccine this season. Denies ear pain, dysphagia, chest pain, shortness of breath, abdominal pain, nausea, or vomiting. - History of Current Complaint Chief Complaint: UCRespiratory Stated Complaint: FEVER,ACHES Time Seen by Provider: 12/22/19 13:00 Hx Obtained From: Patient Hx Last Menstrual Period: doesn't get Pain Intensity: 7 - Allergy/Home Medications Allergies/Adverse Reactions: Allergies Allergy/AdvReac Type Severity Reaction Status Date / Time hydrocodone AdvReac "Nauseating Verified 12/22/19 13:05 Headache" seasonal Allergy Eyes Uncoded 12/22/19 13:05 Itchy/Swollen/Red/Watery Home Medications: Home Medications Phenylephrine/Dm/Acetaminop/GG [Vicks Dayquil Severe Cold-Flu] 2 tab PO Q6H PRN 12/22/19 [History Confirmed 12/22/19] PMH/Surg Hx/FS Hx/Imm Hx GI/ History: Gastroesophageal Reflux Neurological History: Migraine - Surgical History Surgical History: Yes Surgery Procedure, Year, and Place: 2010 & 2011 Sinus surgeries, [facility] (Dr. Torres). TUBES TIED--08/25/15; kidney stent placement then stent removed 2018. hysterectomy 11/2016 - Family History Known Family History: Positive: Cardiac Disease, Hypertension, Diabetes - Social History Occupation: Disabled Lives: Alone Alcohol Use: Rare Substance Use Type: None Smoking Status (MU): Heavy Every Day Tobacco Smoker Type: Cigarettes Amount Used/How Often: 1/2 PPD Length of Time of Smoking/Using Tobacco: Since Age 16 Have You Smoked in the Last Year: Yes When Did the Patient Quit Smoking/Using Tobacco: 2018 Household Exposure Type: Cigarettes - Immunization History Most Recent Influenza Vaccination: [id number] Most Recent Tetanus Shot: 03/16/15 Most Recent Pneumonia Vaccination: none Vaccination Up to Date: Yes Review of Systems All Other Systems Reviewed And Are Negative: Yes Constitutional: Positive: Fever, Chills, Fatigue Skin: Negative: Rash Eyes: Negative: Drainage, Eye Redness ENT: Positive: Sore Throat, Nasal Discharge, Sinus Congestion. Negative: Ear Ache, Sinus Pain/Tenderness Respiratory: Positive: Cough. Negative: Shortness Of Breath Cardiovascular: Negative: Palpitations, Chest Pain Gastrointestinal: Negative: Abdominal Pain, Vomiting, Diarrhea, Nausea Genitourinary: Positive: Negative Musculoskeletal: Positive: Myalgia Neurological: Positive: Headache Is Patient Immunocompromised?: No Physical Exam - Summary Physical Exam Summary: GENERAL APPEARANCE: Alert and cooperative obese female who appears to be in no acute distress. EYES: Conjunctiva clear. No drainage. EARS: External auditory canals and tympanic membranes clear, hearing grossly intact. NOSE: Mild to moderate nasal congestion. Clear nasal discharge. THROAT: Mild pharyngeal erythema. Normal No tonsilar inflammation, swelling, exudate, or lesions. Uvula midline. NECK: Neck supple, non-tender without lymphadenopathy. CARDIAC: Normal S1 and S2. No S3, S4 or murmurs. Rhythm is regular. There is no peripheral edema, cyanosis or pallor. Extremities are warm and well perfused. Capillary refill is less than 2 seconds. Peripheral pulses intact. LUNGS: Clear to auscultation without rales, rhonchi, wheezing or diminished breath sounds. Dry, nonproductive cough. ABDOMEN: Positive bowel sounds. Soft, nondistended, nontender. No guarding or rebound. No masses or hepatosplenomegally. MUSKULOSKELETAL: ROM intact to all extremities. No joint erythema or tenderness. Normal muscular development. Normal gait. SKIN: Skin normal color, texture and turgor with no lesions or eruptions. Triage Information Reviewed: Yes Vital Signs: Initial Vital Signs Temp 98.8 F 12/22/19 13:03 Pulse 116 12/22/19 13:03 Resp 20 12/22/19 13:03 BP 116/76 12/22/19 13:03 Pulse Ox 98 12/22/19 13:03 Vital Signs Reviewed: Yes Flu Course/Dx - Course Course Of Treatment: 29-year-old female presents with sudden onset of general malaise, headache, body aches, chills, nasal congestion, sore throat, and a nonproductive cough last night. Max temperature of 103.4 F. She did not receive her flu vaccine this season. Denies ear pain, dysphagia, chest pain, shortness of breath, abdominal pain, nausea, or vomiting. Afebrile. Mildly tachycardic otherwise vital signs stable. Patient had mild to moderate nasal congestion, clear nasal discharge, pharyngeal erythema without tonsillar swelling or exudate, no cervical lymphadenopathy, clear bilateral breath sounds, try nonproductive cough , and otherwise unremarkable exam. Rapid flu test was positive for influenza A. Discussed risks and benefits of treating with Tamiflu and patient is electing to start at this time. Have also recommended symptomatic treatment. She is to follow-up with her primary care provider in 5-7 days if symptoms are not improving. Expectorants warning symptoms were reviewed with the patient. Verbalizes understanding and agrees to plan of care. - Differential Dx/Diagnosis Differential Diagnosis/HQI/PQRI: Bronchitis, Influenza, Pneumonia, Upper Respiratory Infection Provider Diagnosis: Influenza A Discharge ED - Sign-Out/Discharge Documenting (check all that apply): Patient Departure All imaging exams completed and their final reports reviewed: No Studies - Discharge Plan Condition: Stable Disposition: HOME Prescriptions: Oseltamivir Phosphate [Tamiflu] 75 mg PO BID 5 Days #10 capsule Patient Education Materials: Influenza (ED) Forms: *Work Release Referrals: Gregory Brothers MD [Primary Care Provider] - 5 Days Additional Instructions: Your flu test in the clinic today was positive for influenza A. Start Tamiflu 1 capsule twice a day for 5 days. Get plenty of rest. Drink plenty of fluids to avoid dehydration especially if you are running any fever. Take over the counter acetaminophen (Tylenol) or ibuprofen (Advil, Motrin) according to directions as needed for pain or fever. Use salt water gargles several times a day if you have a sore throat. You may also use Chloraseptic spray or Cepacol lonzenges according to directions which contain a numbing medication and can provide some temporary relief from your sore throat. Follow up with your primary care provider in 5-7 days if symptoms persist. Seek immediate medical attention in the emergency room if you have fever greater than 100.5 F despite taking acetaminophen or ibuprofen, have chest pain , difficulty breathing, are unable to swallow, or have any worsening of symptoms. - Billing Disposition and Condition Condition: STABLE Disposition: Home - Attestation Statements Provider Attestation: This patient was not seen by me. I was available for consult. Chart reviewed SHARRI
== END 2019-12-22 13:57 | disposition home or self-care (01) ==
LOC: UCCORT 11:45
DX: J10.1 Influenza due to other identified influenza virus with other respiratory manifestations (principal); F17.210 Nicotine dependence, cigarettes, uncomplicated; Z88.5 Allergy status to narcotic agent; Z91.09 Other allergy status, other than to drugs and biological substances
CPT/HCPCS: 99212; G0463